=== PATIENT | male | born 1945 | race African-American/Black ===

== ENCOUNTER 2016-11-09 08:22 | Emergency (ER) | payer MEDICARE, OTHER ==
[~2016-11-09] VITALS: Ht 188 cm; Wt 62.6 kg
[~2016-11-09 08:22] MED LIST: CALCCAP7; CARB1TAB61; DORZ2SOL9; MECL25TA94; OME20GT; [UNRECOGNIZED DRUG - OTHER]; [UNRECOGNIZED DRUG - OTHER]
[2016-11-09 12:18] LABS: Basophils # (auto) 0.1 uL; Basophils % (auto) 1.5 % (0.0-2.0); Eosinophils # (auto) 0.1 uL; Eosinophils % (auto) 1.4 % (0.0-7.0); Hematocrit 38.9 % (41.0-53.0); Hemoglobin 12.9 g/dL (13.5-17.5); Lymphocytes # (auto) 1.3 uL; Lymphocytes % (auto) 26.7 % (10.0-50.0); Mean Corpuscular Hemoglobin 33.2 pg (28.0-32.0); Mean Corpuscular Hgb Conc. 33.3 g/dL (32.0-36.0); Mean Platelet Volume 7.7 fL (7.4-10.4); Monocytes # (auto) 0.5 uL; Monocytes % (auto) 10.9 % (0.0-12.0); Neutrophils # (auto) 2.8 uL; Neutrophils % (auto) 59.5 % (37.0-80.0); Platelet Count (auto) 385 10^3/uL (140-450); Red Cell Distribution Width 12.4 % (11.6-16.0); White Blood Cell 4.8 10^3/uL (4.4-10.8)
[2016-11-09 12:36] LABS: Albumin 3.9 g/dL (3.4-5.0); Anion Gap 9 (5-15); Aspartate Aminotransferase 13 U/L (15-37); BUN/Creatinine Ratio 15.7; Blood Urea Nitrogen 13 mg/dL (7-18); Calcium 8.7 mg/dL (8.5-10.1); Carbon Dioxide 27 mmol/L (21-32); Chloride 102 mmol/L (98-107); GFR African American 117 mL/min; GFR Non-African American 97 mL/min; Glucose 100 mg/dL (74-106); Potassium 4.1 mmol/L (3.5-5.1); Sodium 138 mmol/L (136-145)
[2016-11-09 12:37] LABS: INR 1.03 (0.9-1.15); Partial Thromboplastin Time 26.6 sec (22.64-33.71); Prothrombin Time 10.6 sec (9.37-12.3)
[2016-11-09 12:41] LABS: Alkaline Phosphatase 67 U/L (45-117); Bilirubin, Total 0.4 mg/dL (0.2-1.0); Total Protein 8.1 g/dL (6.4-8.2)
[2016-11-09 13:30] LABS: Urine Bilirubin Negative (Negative); Urine Color Yellow (Yellow); Urine Glucose Normal (Normal); Urine Ketone Negative (Negative); Urine Nitrite Negative (Negative); Urine RBC 7 /hpf (0 - 3); Urine Urobilinogen Normal (Negative); Urine pH 6.5 (5.0-8.0)
[2016-11-09 13:31] LABS: Urine Blood 1+ /uL (Negative)
[2016-11-09 15:18] VITALS: BP 150/79
== END 2016-11-09 16:14 | disposition home or self-care (01) ==
LOC: EDUNIT# 08:22 → ER 08:25
DX: R06.02 Shortness of breath (principal); G20 Parkinson's disease; R42 Dizziness and giddiness; R51 Headache; F41.9 Anxiety disorder, unspecified; I25.10 Atherosclerotic heart disease of native coronary artery without angina pectoris; I10 Essential (primary) hypertension; Z95.0 Presence of cardiac pacemaker
CPT/HCPCS: 36415; 71010; 80053; 81001; 84484; 85025; 85610; 85730; 93005

== ENCOUNTER → 2017-04-28 | Outpatient (CLI) | payer MEDICARE, OTHER ==
[~2017-04-28] MED LIST changes: +AMLO5TAB2 PO; +ASPI-231 PO; +BRIM0.1S3 OP; +CAR25T PO; -CARB1TAB61; +DORZ1SOL2 OP; -DORZ2SOL9; -MECL25TA94; +OME20T PO; +SIME80CH6 PO; +TRAV0.00 OP
== END | disposition home or self-care (01) ==
LOC: Rad HDHVI 09:45
PROVIDERS: ATTEND Internal Medicine Cardiovascular Disease
DX: I48.0 Paroxysmal atrial fibrillation (principal); I63.9 Cerebral infarction, unspecified
CPT/HCPCS: 93880

== ENCOUNTER → 2017-09-04 | Outpatient (CLI) | payer MEDICARE, OTHER ==
[~2017-09-04] MED LIST changes: +diphenhdrAMINE HCL 50 MG/1 ML VL IV ONE; +diphenhdrAMINE HCL 50 MG/1 ML VL ONE; +methylPREDNISolone SOD SUCC 125 MG/2 ML VL IV ONE; +methylPREDNISolone SOD SUCC 125 MG/2 ML VL ONE
[2017-09-04 11:00] VITALS: BP 171/97
[2017-09-04 11:40] VITALS: BP 192/105
== END | disposition home or self-care (01) ==
LOC: Rad HDHVI 10:36
PROVIDERS: ATTEND Internal Medicine Cardiovascular Disease
DX: I67.2 Cerebral atherosclerosis (principal)
CPT/HCPCS: 70498; 82565; 96374; 96375; G0463; J1200; J2930

== ENCOUNTER → 2018-07-16 | Outpatient (CLI) | payer MEDICARE, OTHER ==
[~2018-07-16] VITALS: Ht 30.5 cm; Wt 59.4 kg
[~2018-07-16] MED LIST changes: +AMLO5TAB13 PO; -AMLO5TAB2 PO; +IOHEXOL 350 MG/ML 100ML IJ ONE; +diphenhdrAMINE HCL 25 MG CAP PO ONE; -diphenhdrAMINE HCL 50 MG/1 ML VL IV ONE; -diphenhdrAMINE HCL 50 MG/1 ML VL ONE
[2018-07-16 09:30] VITALS: BP 92/58
[2018-07-16 11:25] VITALS: BP 148/87
== END | disposition home or self-care (01) ==
LOC: Rad HDHVI 09:27
PROVIDERS: ATTEND Internal Medicine Cardiovascular Disease
DX: I72.9 Aneurysm of unspecified site (principal); I10 Essential (primary) hypertension; E78.5 Hyperlipidemia, unspecified; E03.9 Hypothyroidism, unspecified; G20 Parkinson's disease; E11.9 Type 2 diabetes mellitus without complications
CPT/HCPCS: 70496; 82565; 96374; G0463; J2930; Q9967

== ENCOUNTER → 2018-10-15 | Outpatient (CLI) | payer MEDICARE, OTHER ==
[~2018-10-15] MED LIST changes: +READI-CAT 2 (BARIUM SULF)(VANILLA SMOOTHIE) 450ML ONE; -diphenhdrAMINE HCL 25 MG CAP PO ONE; +diphenhdrAMINE HCL 50 MG/1 ML VL IV ONE; +diphenhdrAMINE HCL 50 MG/1 ML VL ONE
[2018-10-15 08:40] VITALS: BP 92/50
--- NOTE | 2018-10-15 08:40 | NUR ---
CHF PT TO CHF CLINIC FOR IV INSERT FOR CT ABD PELVIS DUE TO CONTINUED ABD PAIN DX. PT RUTHY IODINE ALLERGY AND MUST BE PREMEDICATION PRIOR TO CT.
--- NOTE | 2018-10-15 08:57 | NUR ---
CHF IV insertion IV access obtained, via clean sterile technique by inserting 22 gauge catheter at after attempt(s). IV secured properly. No trauma to site. Patient tolerated procedure well.Clinic Provider Clinic Provider DR. LONG pt with new orders received and carried out. PREMEDICATE WITH BENADRYL 25MG IVP AND SOLUMEDEROL 125MG IVP FOR IODINE ALLERGY. per MD order.
[2018-10-15 09:25] VITALS: BP 132/71
--- NOTE | 2018-10-15 09:30 | NUR ---
CHF IV removal IV DC'd with sterile technique, catheter fully intact. Pressure dressing applied to site. Patient tolerated procedure well. INCREASE O/2 INTAKE TODAY TO AID IN CONTRAST CLEARANCE. Discharged with aftercare instructions per MD. NOTE:
== END | disposition home or self-care (01) ==
LOC: Rad HDHVI 08:27
PROVIDERS: ATTEND Internal Medicine Cardiovascular Disease
DX: N28.1 Cyst of kidney, acquired (principal); N40.0 Benign prostatic hyperplasia without lower urinary tract symptoms; I25.10 Atherosclerotic heart disease of native coronary artery without angina pectoris; I48.0 Paroxysmal atrial fibrillation; I10 Essential (primary) hypertension; E78.5 Hyperlipidemia, unspecified; E03.9 Hypothyroidism, unspecified; E11.9 Type 2 diabetes mellitus without complications; E78.00 Pure hypercholesterolemia, unspecified; F41.9 Anxiety disorder, unspecified; Z86.73 Personal history of transient ischemic attack (TIA), and cerebral infarction without residual deficits; Z86.018 Personal history of other benign neoplasm; Z95.0 Presence of cardiac pacemaker
CPT/HCPCS: 74177; 82565; 96374; 96375; G0463; J1200; J2930; Q9967

== ENCOUNTER → 2018-12-24 | Outpatient (CLI) | payer MEDICARE, OTHER ==
[~2018-12-24] MED LIST changes: -IOHEXOL 350 MG/ML 100ML IJ ONE; -READI-CAT 2 (BARIUM SULF)(VANILLA SMOOTHIE) 450ML ONE; -diphenhdrAMINE HCL 50 MG/1 ML VL IV ONE; -diphenhdrAMINE HCL 50 MG/1 ML VL ONE; -methylPREDNISolone SOD SUCC 125 MG/2 ML VL IV ONE; -methylPREDNISolone SOD SUCC 125 MG/2 ML VL ONE
[2018-12-24 12:18] LABS: Urine Blood TRACE /uL (Negative); Urine Specific Gravity 1.012 (1.001-1.035)
[2018-12-24 12:26] LABS: Basophils # (auto) 0 uL; Eosinophils # (auto) 0.1 uL; Hemoglobin 14.4 g/dL (13.5-17.5); Lymphocytes # (auto) 0.9 uL; Monocytes # (auto) 0.4 uL; White Blood Cell 3.4 10^3/uL (4.4-10.8)
[2018-12-24 12:29] LABS: Basophils % (auto) 0.6 % (0.0-2.0); Eosinophils % (auto) 1.9 % (0.0-7.0); Hematocrit 43.2 % (41.0-53.0); Lymphocytes % (auto) 26.4 % (10.0-50.0); Mean Corpuscular Hemoglobin 34.8 pg (28.0-32.0); Mean Corpuscular Hgb Conc. 33.3 g/dL (32.0-36.0); Mean Corpuscular Volume 104.5 fL (80.0-100.0); Monocytes % (auto) 12.5 % (0.0-12.0); Neutrophils % (auto) 58.6 % (37.0-80.0); Nucleated Red Blood Cells % 0.2 %; Platelet Count (auto) 340 10^3/uL (140-450); Red Blood Cells 4.13 10^6/uL (4.5-5.90); Red Cell Distribution Width 13.4 % (11.8-14.3)
[2018-12-24 13:00] LABS: Albumin 4.1 g/dL (3.4-5.0); Potassium 3.9 mmol/L (3.5-5.1)
[2018-12-24 13:09] LABS: BUN/Creatinine Ratio 14.6; Bilirubin, Total 0.5 mg/dL (0.2-1.0); Calcium 9.1 mg/dL (8.5-10.1); Total Protein 8.4 g/dL (6.4-8.2)
== END | disposition home or self-care (01) ==
LOC: Rad HDHVI 09:31
PROVIDERS: ATTEND Internal Medicine Cardiovascular Disease
DX: N39.0 Urinary tract infection, site not specified (principal); E78.5 Hyperlipidemia, unspecified; I10 Essential (primary) hypertension; D64.9 Anemia, unspecified; E03.9 Hypothyroidism, unspecified; M85.89 Other specified disorders of bone density and structure, multiple sites; J84.10 Pulmonary fibrosis, unspecified; I70.0 Atherosclerosis of aorta
CPT/HCPCS: 36415; 71046; 80053; 80061; 81003; 84439; 84443; 85025; 87086

== ENCOUNTER → 2020-05-16 | Outpatient (CLI) | payer MEDICARE, OTHER ==
[~2020-05-16] MED LIST changes: -AMLO5TAB13 PO; +AMLO5TAB15 PO
[2020-05-16 16:36] LABS: Basophils # (auto) 0 10 ^3/uL (0-0.2); Eosinophils # (auto) 0 10 ^3/uL (0-0.8); Lymphocytes # (auto) 0.6 10 ^3/uL (0.4-5.4); Monocytes # (auto) 0.3 10 ^3/uL (0-1.3); Nucleated Red Blood Cells % 0.1 %; White Blood Cell 2.6 10^3/uL (4.4-10.8)
[2020-05-16 16:38] LABS: Basophils % (auto) 1.2 % (0.0-2.0); Eosinophils % (auto) 0.6 % (0.0-7.0); Hematocrit 38.5 % (41.0-53.0); Lymphocytes % (auto) 23.1 % (10.0-50.0); Mean Corpuscular Hemoglobin 34.1 pg (28.0-32.0); Mean Corpuscular Hgb Conc. 33.7 g/dL (32.0-36.0); Mean Corpuscular Volume 101.3 fL (80.0-100.0); Monocytes % (auto) 10.1 % (0.0-12.0); Neutrophils # (auto) 1.7 10 ^3/uL (1.6-8.6); Platelet Count (auto) 356 10^3/uL (140-450); Red Blood Cells 3.81 10^6/uL (4.5-5.90); Red Cell Distribution Width 13.3 % (11.8-14.3)
[2020-05-16 16:42] LABS: Urine Blood Negative /uL (Negative); Urine Specific Gravity 1.025 (1.001-1.035)
[2020-05-16 16:48] LABS: Albumin 3.6 g/dL (3.4-5.0); Anion Gap 3 (5-15); Blood Urea Nitrogen 13 mg/dL (7-18); Calcium 8.5 mg/dL (8.5-10.1); Carbon Dioxide 30 mmol/L (21-32); Chloride 105 mmol/L (98-107); Glucose 77 mg/dL (74-106); Potassium 3.9 mmol/L (3.5-5.1); Sodium 138 mmol/L (136-145)
[2020-05-16 16:51] LABS: Alanine Aminotransferase 13 U/L (16-61); Alkaline Phosphatase 69 U/L (45-117); Aspartate Aminotransferase 15 U/L (15-37); BUN/Creatinine Ratio 16.5; Bilirubin, Direct < 0.1 mg/dL (0-0.2); Bilirubin, Total 0.3 mg/dL (0.2-1.0); Cholesterol 161 mg/dL (< 200); GFR African American 123 mL/min; GFR Non-African American 102 mL/min; HDL Cholesterol 84 mg/dL (40-59); LDL Cholesterol 73 mg/dL (< 100); Total Protein 7.3 g/dL (6.4-8.2); Triglycerides 30 mg/dL (< 150)
== END | disposition home or self-care (01) ==
LOC: Rad HDHVI 15:31
PROVIDERS: ATTEND Internal Medicine Cardiovascular Disease
DX: S43.001A Unspecified subluxation of right shoulder joint, initial encounter (principal); M47.812 Spondylosis without myelopathy or radiculopathy, cervical region; M25.78 Osteophyte, vertebrae; C61 Malignant neoplasm of prostate; M19.011 Primary osteoarthritis, right shoulder; M48.03 Spinal stenosis, cervicothoracic region; E11.9 Type 2 diabetes mellitus without complications; K90.9 Intestinal malabsorption, unspecified; E03.9 Hypothyroidism, unspecified; N39.0 Urinary tract infection, site not specified; D51.9 Vitamin B12 deficiency anemia, unspecified; D64.9 Anemia, unspecified; I10 Essential (primary) hypertension; E78.5 Hyperlipidemia, unspecified; E55.9 Vitamin D deficiency, unspecified; R53.81 Other malaise; R97.20 Elevated prostate specific antigen [PSA]; M81.0 Age-related osteoporosis without current pathological fracture; Z00.00 Encounter for general adult medical examination without abnormal findings; Z79.899 Other long term (current) drug therapy; X58.XXXA Exposure to other specified factors, initial encounter; Y93.89 Activity, other specified; Y92.89 Other specified places as the place of occurrence of the external cause; Y99.8 Other external cause status
CPT/HCPCS: 36415; 72040; 73030; 80048; 80061; 80076; 81003; 82306; 83036; 84153; 84403; 84443; 85025

== ENCOUNTER → 2020-05-17 | Outpatient (CLI) | payer MEDICARE, OTHER | END | disposition home or self-care (01) | LOC: Rad HDHVI 16:07 | PROVIDERS: ATTEND Internal Medicine Cardiovascular Disease | DX: I37.1 Nonrheumatic pulmonary valve insufficiency (principal); I07.1 Rheumatic tricuspid insufficiency; R07.89 Other chest pain; R00.1 Bradycardia, unspecified; Z95.0 Presence of cardiac pacemaker | CPT/HCPCS: 93306 ==

== ENCOUNTER → 2020-10-26 | Outpatient (CLI) | payer MEDICARE, OTHER ==
[~2020-10-26] MED LIST changes: +AMLO-489 PO; -AMLO5TAB15 PO
[2020-10-26 11:29] LABS: Urine Blood Negative /uL (Negative); Urine Specific Gravity 1.027 (1.001-1.035)
== END | disposition home or self-care (01) ==
LOC: Rad HDHVI 10:09
PROVIDERS: ATTEND Internal Medicine
DX: M16.0 Bilateral primary osteoarthritis of hip (principal); M54.5 Low back pain; M25.552 Pain in left hip; M25.551 Pain in right hip; N39.0 Urinary tract infection, site not specified
CPT/HCPCS: 72100; 81003

== ENCOUNTER 2021-03-11 18:35 | Inpatient (IN) | payer MEDICARE, OTHER ==
[~2021-03-11] VITALS: Ht 188 cm; Wt 59.7 kg
[~2021-03-11 18:35] MED LIST changes: -ASPI-231 PO; +ASPI1TAB20 PO
[2021-03-11] MEDS ORDERED: SODIUM CHLORIDE 0.9% 500 ML IVB ONE (19:00)
[2021-03-11 19:07] LABS: Basophils # (auto) 0 10 ^3/uL (0-0.2); Basophils % (auto) 0.9 % (0.0-2.0); Eosinophils # (auto) 0.1 10 ^3/uL (0-0.8); Eosinophils % (auto) 2.6 % (0.0-7.0); Monocytes # (auto) 0.4 10 ^3/uL (0-1.3); Monocytes % (auto) 9.5 % (0.0-12.0); Neutrophils # (auto) 2.1 10 ^3/uL (1.6-8.6); Red Cell Distribution Width 12.9 % (11.8-14.3)
[2021-03-11 19:09] LABS: Hematocrit 34.9 % (41.0-53.0); Hemoglobin 12.5 g/dL (13.5-17.5); Lymphocytes # (auto) 1.6 10 ^3/uL (0.4-5.4); Lymphocytes % (auto) 37.5 % (10.0-50.0); Mean Corpuscular Hemoglobin 35.5 pg (28.0-32.0); Mean Corpuscular Hgb Conc. 35.7 g/dL (32.0-36.0); Mean Corpuscular Volume 99.2 fL (80.0-100.0); Neutrophils % (auto) 49.5 % (37.0-80.0); Nucleated Red Blood Cells % 0.1 %; Red Blood Cells 3.52 10^6/uL (4.5-5.90); White Blood Cell 4.3 10^3/uL (4.4-10.8)
[2021-03-11 19:26] LABS: Alanine Aminotransferase 11 U/L (16-61); Albumin 3.5 g/dL (3.4-5.0); Anion Gap 5 (5-15); Blood Urea Nitrogen 19 mg/dL (7-18); Calcium 8.4 mg/dL (8.5-10.1); Carbon Dioxide 27 mmol/L (21-32); Chloride 108 mmol/L (98-107); Glucose 159 mg/dL (74-106); Magnesium 2.6 mg/dL (1.6-2.6); Potassium 4.1 mmol/L (3.5-5.1); Sodium 140 mmol/L (136-145)
[2021-03-11 19:32] LABS: Alkaline Phosphatase 69 U/L (45-117); Aspartate Aminotransferase 14 U/L (15-37); BUN/Creatinine Ratio 22.1; Bilirubin, Total 0.3 mg/dL (0.2-1.0); GFR African American 111 mL/min; GFR Non-African American 92 mL/min; Total Protein 7.4 g/dL (6.4-8.2)
[2021-03-11] MEDS ORDERED: NITROGLYCERIN 0.4 MG SL TAB SL PRN (22:00)
[2021-03-11] MEDS ORDERED: KETOROLAC TROMETH 30 MG/ML 1ML VIAL IV PRN (22:00)
[2021-03-11] MEDS ORDERED: MORPHINE SULFATE INJECTION 2 MG/ML SYRG IV PRN (22:00)
[2021-03-11] MEDS ORDERED: PIMA34CA PO (22:26)
[2021-03-11] MEDS ORDERED: AMLO-489 PO (22:26)
[2021-03-11] MEDS ORDERED: CARB25TA79 PO ×2 (22:26)
[2021-03-11] MEDS ORDERED: GABA100C9 PO (22:26)
[2021-03-11] MEDS ORDERED: QUET50TA PO (22:26)
[2021-03-11] MEDS ORDERED: CARB1TAB73 PO (22:26)
[2021-03-11] MEDS ORDERED: DONETAB6 PO (22:26)
[2021-03-11] MEDS ORDERED: DIVA250T4 PO (22:26)
[2021-03-12] MEDS ORDERED: cloNIDine HCL 0.1 MG TAB ONE (00:05)
[2021-03-12] MEDS: SODIUM CHLORIDE 0.9% 1,000 ML IV SCH ×2 (00:54→18:23)
[2021-03-12] MEDS ORDERED: cloNIDine HCL 0.1 MG TAB PO PRN ×2 (02:30)
[2021-03-12 03:54] LABS: Urine Bacteria FEW /hpf (None Seen); Urine Blood Negative /uL (Negative); Urine Mucus FEW (None Seen); Urine Specific Gravity 1.017 (1.001-1.035); Urine WBC 1 /hpf (0 - 3)
[2021-03-12] MEDS ORDERED: CARBIDOPA W LEVODOPA 25/100mg TABLET PO SCH ×2 (04:00→12:00)
[2021-03-12] MEDS: cefTRIAXone 1GM/50ML D5W 50 ML IV SCH (09:47)
[2021-03-12] MEDS: CARBIDOPA W LEVODOPA 25/250mg TABLET PO SCH ×2 (09:47→10:00)
[2021-03-12] MEDS: GABAPENTIN 100 MG CAP PO SCH ×2 (09:49→22:00)
[2021-03-12] MEDS: amLODIPine BESYLATE 5 MG TAB PO SCH (09:50)
[2021-03-12 11:45] VITALS: BP 137/76
[2021-03-12] MEDS: QUEtiapine FUMARATE 25 MG TAB PO SCH ×2 (12:14→22:00)
[2021-03-12] MEDS ORDERED: LATA0.0019 EACHEYE (13:34)
[2021-03-12] MEDS: CARBIDOPA W LEVODOPA 25/100mg TABLET PO SCH ×2 (16:00→22:33)
[2021-03-12 17:00] VITALS: BP 110/65
[2021-03-12 22:00] VITALS: BP 188/95
[2021-03-12] MEDS: DONEPEZIL HYDROCHLORIDE 5 MG TAB PO SCH (22:00)
[2021-03-13] MEDS ORDERED: HALOPERIDOL LACTATE 5 MG/ML INJ VIAL IM PRN (01:15)
[2021-03-13] MEDS: CARBIDOPA W LEVODOPA 25/100mg TABLET PO SCH ×5 (04:00→20:12)
[2021-03-13 05:00] VITALS: BP 137/91
[2021-03-13] MEDS: CARBIDOPA W LEVODOPA 25/250mg TABLET PO SCH (08:11)
[2021-03-13 10:10] VITALS: BP 124/69
[2021-03-13] MEDS: GABAPENTIN 100 MG CAP PO SCH ×2 (10:13→22:13)
[2021-03-13] MEDS: cefTRIAXone 1GM/50ML D5W 50 ML IV SCH (10:14)
[2021-03-13] MEDS: QUEtiapine FUMARATE 25 MG TAB PO SCH ×2 (10:14→22:13)
[2021-03-13] MEDS: amLODIPine BESYLATE 5 MG TAB PO SCH (10:21)
[2021-03-13] MEDS: SODIUM CHLORIDE 0.9% 1,000 ML IV SCH (16:15)
[2021-03-13 22:00] VITALS: BP 100/64
[2021-03-13] MEDS: DONEPEZIL HYDROCHLORIDE 5 MG TAB PO SCH (22:12)
[2021-03-13 22:56] LABS: Folate (Folic Acid) > 24.00 ng/mL (5.38-24)
[2021-03-14] MEDS: CARBIDOPA W LEVODOPA 25/100mg TABLET PO SCH ×6 (00:13→23:57)
[2021-03-14 05:00] VITALS: BP 105/62
[2021-03-14] MEDS: CARBIDOPA W LEVODOPA 25/250mg TABLET PO SCH (08:38)
[2021-03-14] MEDS: SODIUM CHLORIDE 0.9% 1,000 ML IV SCH (08:39)
[2021-03-14 09:00] VITALS: BP 147/80
[2021-03-14] MEDS: cefTRIAXone 1GM/50ML D5W 50 ML IV SCH (10:19)
[2021-03-14] MEDS: QUEtiapine FUMARATE 25 MG TAB PO SCH ×2 (10:20→21:56)
[2021-03-14] MEDS: ASPirin 81 mg TAB PO SCH (10:20)
[2021-03-14] MEDS: GABAPENTIN 100 MG CAP PO SCH ×2 (10:20→21:56)
[2021-03-14] MEDS: amLODIPine BESYLATE 5 MG TAB PO SCH (10:21)
[2021-03-14 13:00] VITALS: BP 102/60
[2021-03-14 17:00] VITALS: BP 72/48
[2021-03-14] MEDS: DONEPEZIL HYDROCHLORIDE 5 MG TAB PO SCH (21:56)
[2021-03-14 22:00] VITALS: BP 125/77
[2021-03-15] MEDS: SODIUM CHLORIDE 0.9% 1,000 ML IV SCH (04:29)
[2021-03-15] MEDS: CARBIDOPA W LEVODOPA 25/100mg TABLET PO SCH ×5 (04:29→23:55)
[2021-03-15 05:00] VITALS: BP 127/75
[2021-03-15] MEDS: CARBIDOPA W LEVODOPA 25/250mg TABLET PO SCH (07:34)
[2021-03-15 09:00] VITALS: BP 137/60
[2021-03-15] MEDS: GABAPENTIN 100 MG CAP PO SCH ×2 (09:56→21:35)
[2021-03-15] MEDS: cefTRIAXone 1GM/50ML D5W 50 ML IV SCH (09:56)
[2021-03-15] MEDS: ASPirin 81 mg TAB PO SCH (09:57)
[2021-03-15] MEDS: QUEtiapine FUMARATE 25 MG TAB PO SCH ×2 (09:57→21:35)
[2021-03-15] MEDS: amLODIPine BESYLATE 5 MG TAB PO SCH (09:59)
[2021-03-15 12:43] VITALS: BP 112/58
[2021-03-15 16:37] VITALS: BP 143/79
[2021-03-15] MEDS ORDERED: ACETAMINOPHEN 325 MG TAB PO PRN (17:15)
[2021-03-15] MEDS: DONEPEZIL HYDROCHLORIDE 5 MG TAB PO SCH (21:35)
[2021-03-15 22:00] VITALS: BP 151/83
[2021-03-16] MEDS: SODIUM CHLORIDE 0.9% 1,000 ML IV SCH (02:00)
[2021-03-16] MEDS: CARBIDOPA W LEVODOPA 25/100mg TABLET PO SCH ×3 (04:29→16:00)
[2021-03-16 05:00] VITALS: BP 185/92
[2021-03-16] MEDS: amLODIPine BESYLATE 5 MG TAB PO SCH (08:14)
[2021-03-16] MEDS: CARBIDOPA W LEVODOPA 25/250mg TABLET PO SCH (08:14)
[2021-03-16 08:30] VITALS: BP 166/84
[2021-03-16 09:35] VITALS: BP 140/82
[2021-03-16] MEDS: GABAPENTIN 100 MG CAP PO SCH (09:42)
[2021-03-16] MEDS: ASPirin 81 mg TAB PO SCH (09:42)
[2021-03-16] MEDS: cefTRIAXone 1GM/50ML D5W 50 ML IV SCH (09:42)
[2021-03-16] MEDS: QUEtiapine FUMARATE 25 MG TAB PO SCH (09:43)
[2021-03-16 12:28] VITALS: BP 98/54
[2021-03-16 14:46] VITALS: BP 166/74
[2021-03-16 16:39] VITALS: BP 92/62
== END 2021-03-16 16:30 | disposition home or self-care (01) | DRG 871 ==
LOC: EDBD 18:35 → ER 18:40 → TELE 21:54 → TELE-WESTW 03-12 12:19
PROVIDERS: ADMIT Internal Medicine Cardiovascular Disease; ATTEND Internal Medicine Cardiovascular Disease
DX: A41.9 Sepsis, unspecified organism (principal); G93.41 Metabolic encephalopathy; I10 Essential (primary) hypertension; G20 Parkinson's disease; I25.10 Atherosclerotic heart disease of native coronary artery without angina pectoris; F41.9 Anxiety disorder, unspecified; F02.80 Dementia in other diseases classified elsewhere, unspecified severity, without behavioral disturbance, psychotic disturbance, mood disturbance, and anxiety; Z20.822 Contact with and (suspected) exposure to COVID-19; R26.9 Unspecified abnormalities of gait and mobility; R73.9 Hyperglycemia, unspecified; G30.9 Alzheimer's disease, unspecified; E86.1 Hypovolemia; I49.5 Sick sinus syndrome; Z79.82 Long term (current) use of aspirin; Z79.899 Other long term (current) drug therapy; Z80.6 Family history of leukemia; Z82.0 Family history of epilepsy and other diseases of the nervous system; Z82.49 Family history of ischemic heart disease and other diseases of the circulatory system; Z83.3 Family history of diabetes mellitus; Z86.73 Personal history of transient ischemic attack (TIA), and cerebral infarction without residual deficits; Z95.0 Presence of cardiac pacemaker; Z91.041 Radiographic dye allergy status
CPT/HCPCS: 36415; 36600; 70450; 71045; 80053; 81001; 82607; 82746; 82805; 83735; 84484; 85025; 87426; 93005; 95819; 96365; A4565; G0378; J0696

== ENCOUNTER → 2021-04-11 | Outpatient (CLI) | payer MEDICARE, OTHER ==
[~2021-04-11] MED LIST changes: +ASPI-231 PO; -ASPI1TAB20 PO; -CAR25T PO; +CARB25TA22 PO; +CARB25TA23 PO; +DIVA250T4 PO; +DONETAB6 PO; +GABA100C9 PO; +LATA0.0019 EACHEYE; -OME20GT; -OME20T PO; +PIMA34CA PO; +QUET50TA PO; -SIME80CH6 PO; -TRAV0.00 OP; -[UNRECOGNIZED DRUG - OTHER]; -[UNRECOGNIZED DRUG - OTHER]
[2021-04-11 11:32] LABS: Basophils # (auto) 0 10 ^3/uL (0-0.2); Eosinophils # (auto) 0 10 ^3/uL (0-0.8); Neutrophils # (auto) 2.1 10 ^3/uL (1.6-8.6); Urine Blood Negative /uL (Negative); Urine Specific Gravity 1.013 (1.001-1.035); White Blood Cell 3.8 10^3/uL (4.4-10.8)
[2021-04-11 11:35] LABS: Basophils % (auto) 1.3 % (0.0-2.0); Eosinophils % (auto) 0.9 % (0.0-7.0); Hematocrit 37.3 % (41.0-53.0); Hemoglobin 12.9 g/dL (13.5-17.5); Lymphocytes # (auto) 1.3 10 ^3/uL (0.4-5.4); Lymphocytes % (auto) 33.7 % (10.0-50.0); Mean Corpuscular Hemoglobin 34.9 pg (28.0-32.0); Mean Corpuscular Hgb Conc. 34.5 g/dL (32.0-36.0); Mean Corpuscular Volume 101.2 fL (80.0-100.0); Monocytes # (auto) 0.3 10 ^3/uL (0-1.3); Monocytes % (auto) 9.3 % (0.0-12.0); Neutrophils % (auto) 54.8 % (37.0-80.0); Red Blood Cells 3.69 10^6/uL (4.5-5.90); Red Cell Distribution Width 13.2 % (11.8-14.3)
[2021-04-11 12:00] LABS: Albumin 3.9 g/dL (3.4-5.0)
[2021-04-11 12:02] LABS: Free T4 (Free Thyroxine) 1.17 ng/dL (0.89-1.76); Prostate Specific Antigen 1.27 ng/mL (0.0-4.0)
[2021-04-11 12:06] LABS: BUN/Creatinine Ratio 21.6; Bilirubin, Total 0.5 mg/dL (0.2-1.0); Total Protein 8.1 g/dL (6.4-8.2)
== END | disposition home or self-care (01) ==
LOC: Rad HDHVI 07:54
PROVIDERS: ATTEND Internal Medicine Cardiovascular Disease
DX: C61 Malignant neoplasm of prostate (principal); D51.3 Other dietary vitamin B12 deficiency anemia; I10 Essential (primary) hypertension; E11.9 Type 2 diabetes mellitus without complications; E55.9 Vitamin D deficiency, unspecified; D64.9 Anemia, unspecified; R00.2 Palpitations; R53.1 Weakness; R30.0 Dysuria; R07.89 Other chest pain; E78.5 Hyperlipidemia, unspecified
CPT/HCPCS: 36415; 80053; 80061; 81003; 82306; 82607; 83036; 84153; 84403; 84439; 84443; 85025; 93306

== ENCOUNTER → 2022-05-05 | Outpatient (CLI) | payer MEDICARE, OTHER ==
[~2022-05-05] MED LIST changes: -ASPI-231 PO; +ASPI1TAB20 PO; +CARB1TAB73 PO; -CARB25TA22 PO; -CARB25TA23 PO; +CARB25TA79 PO
[2022-05-05 10:20] LABS: Basophils # (auto) 0 10 ^3/uL (0-0.2); Basophils % (auto) 0.7 % (0.0-2.0); Eosinophils # (auto) 0.1 10 ^3/uL (0-0.8); Eosinophils % (auto) 3.5 % (0.0-7.0); Hematocrit 35.1 % (41.0-53.0); Lymphocytes # (auto) 0.7 10 ^3/uL (0.4-5.4); Lymphocytes % (auto) 35.6 % (10.0-50.0); Mean Corpuscular Hemoglobin 33.4 pg (28.0-32.0); Mean Corpuscular Hgb Conc. 34.2 g/dL (32.0-36.0); Mean Corpuscular Volume 97.4 fL (80.0-100.0); Monocytes # (auto) 0.2 10 ^3/uL (0-1.3); Monocytes % (auto) 9.7 % (0.0-12.0); Neutrophils % (auto) 50.5 % (37.0-80.0); Nucleated Red Blood Cells % 0.1 %; Red Cell Distribution Width 13.5 % (11.8-14.3); White Blood Cell 2.1 10^3/uL (4.4-10.8)
[2022-05-05 10:26] LABS: Potassium 3.9 mmol/L (3.5-5.1)
[2022-05-05 10:35] LABS: Albumin 3.4 g/dL (3.4-5.0); BUN/Creatinine Ratio 19.8; Bilirubin, Total 0.5 mg/dL (0.2-1.0); Calcium 8.7 mg/dL (8.5-10.1); Total Protein 7.3 g/dL (6.4-8.2)
[2022-05-05 10:38] LABS: Free T4 (Free Thyroxine) 1.06 ng/dL (0.89-1.76); Prostate Specific Antigen 1.4 ng/mL (0.0-4.0)
[2022-05-06 16:36] LABS: Urine Blood Negative /uL (Negative); Urine Specific Gravity 1.009 (1.001-1.035)
== END | disposition home or self-care (01) ==
LOC: LAB 09:08
PROVIDERS: ATTEND Internal Medicine Cardiovascular Disease
DX: D51.3 Other dietary vitamin B12 deficiency anemia (principal); D64.9 Anemia, unspecified; E55.9 Vitamin D deficiency, unspecified; E11.9 Type 2 diabetes mellitus without complications; I10 Essential (primary) hypertension; R00.2 Palpitations; R53.1 Weakness; R30.0 Dysuria; C61 Malignant neoplasm of prostate
CPT/HCPCS: 36415; 80053; 80061; 81003; 82306; 82607; 83036; 84153; 84403; 84439; 84443; 85025

== ENCOUNTER → 2022-05-07 | Outpatient (CLI) | payer MEDICARE, OTHER | END | disposition home or self-care (01) | LOC: Rad HDHVI 08:21 | PROVIDERS: ATTEND Internal Medicine Cardiovascular Disease | DX: I08.1 Rheumatic disorders of both mitral and tricuspid valves (principal); I27.20 Pulmonary hypertension, unspecified; R00.2 Palpitations; I10 Essential (primary) hypertension | CPT/HCPCS: 93306 ==

== ENCOUNTER → 2022-09-01 | Outpatient (CLI) | payer MEDICARE, OTHER | END | disposition home or self-care (01) | LOC: Rad HDHVI 10:17 | PROVIDERS: ATTEND Internal Medicine Cardiovascular Disease | DX: M25.775 Osteophyte, left foot (principal); M25.774 Osteophyte, right foot; M77.8 Other enthesopathies, not elsewhere classified | CPT/HCPCS: 73630; 94640 ==

== ENCOUNTER → 2023-08-28 | Outpatient (CLI) | payer MEDICARE, OTHER ==
[~2023-08-28] MED LIST changes: -AMLO-489 PO; +AMLO1TAB22 PO; +GABA-1308 PO; -GABA100C9 PO; -LATA0.0019 EACHEYE; +LATA0.008 EACHEYE
== END | disposition home or self-care (01) ==
LOC: Rad HDHVI 15:55
PROVIDERS: ATTEND Internal Medicine Cardiovascular Disease
DX: I34.0 Nonrheumatic mitral (valve) insufficiency (principal); R07.89 Other chest pain; R00.2 Palpitations
CPT/HCPCS: 93306

== ENCOUNTER 2025-01-20 19:44 | Inpatient (IN) | payer MEDICARE, OTHER ==
[~2025-01-20] VITALS: Ht 188 cm; Wt 52.0 kg
[~2025-01-20 19:44] MED LIST changes: +DIVA-139 PO; -DIVA250T4 PO
--- NOTE | 2025-01-20 20:03 | ED.PDOC ---
History of Present Illness HPI Comments 79 year old male came to ER via EMS due to ALOC. Patient picked up at home and has history of Advanced Parkinson and implantable neurostimulator. Was noted by family members that for the past 3 days, patient has been having slurring of speech with facial droop. Patient is bed bound. No family members at bedside to provide more information. Chief Complaint: ALOC Time Seen by MD: 20:03 Reviewed Notes: Credit Risk Officer Notes Allergies: Coded Allergies: Iodine (Verified Allergy, Mild, HIVES, 02/01/10) Fluoxetine (Verified Allergy, Unknown, 01/22/25) Home Meds Reported Medications Carbidopa-Levodopa (Carbidopa/Levodopa Odt 25-100 mg) 1 Tab Tab, 1.5 TAB PO TID, TAB 01/22/25 Quetiapine Fumerate (Seroquel) 50 Mg Tab, 25 MG PO DAILY, TAB 01/22/25 Quetiapine Fumerate (Seroquel) 50 Mg Tab, 1 TAB PO QPM, #30 TAB 01/22/25 Midodrine Hcl (Midodrine Hcl) 10 Mg Tab, 15 MG PO PRN for prn, TAB 01/22/25 Pimavanserin Tartrate (Nuplazid) 34 Mg Cap, 34 MG PO DAILY, CAP 01/22/25 Carvedilol (Carvedilol) 3.125 Mg Tab, 1 TAB PO BID, #60 TAB 3 Refills 01/22/25 Carvedilol (Carvedilol) 3.125 Mg Tab, 3.125 MG PO BID for 30 Days, MG 01/21/25 Latanoprost (LATANOPROST) 0.005 % Matilde, 1 DROP EACHEYE QPM, #7.5 ML 3 Refills 03/12/21 Amlodipine Besylate (Amlodipine Besylate) 5 Mg Tab, 1 TAB PO, #30 TAB 5 Refills 03/11/21 Gabapentin (Gabapentin) 100 Mg Cap, 2 CAP PO HS, #90 CAP 2 Refills 03/11/21 Divalproex Sodium (Depakote) 250 Mg Tab, 0.5 TAB PO BID, #60 TAB 2 Refills 03/11/21 Pimavanserin Tartrate (Nuplazid) 34 Mg Cap, 34 MG PO DAILY, CAP 03/11/21 Carbidopa-Levodopa (Carbidopa/Levodopa Odt 25-100 mg) 1 Tab Tab, 1 TAB PO HS, TA B 03/11/21 Carbidopa-Levodopa (Carbidopa/Levodopa Odt 25-100 mg) 1 Tab Tab, 1.5 TAB PO Q4HR, TAB 03/11/21 Carbidopa-Levodopa (Carbidopa/Levodopa Odt 25-250 mg) 1 Tab Tab, 1 TAB PO DAILY, TAB 03/11/21 Donepezil Hydrochloride (DONEPEZIL HCL) 10 Mg Tab, 10 MG PO HS, TAB 03/11/21 Aspirin (Aspir-81) 81 Mg Tab, 81 MG PO DAILY, TAB 02/17/17 Dorzolamide Hcl-Timolol Maleat (COSOPT PF) Matilde, 1 OP BID 02/17/17 Brimonidine Tartrate (Alphagan P) 0.1 % Matilde, 0.1 % OP BID 02/17/17 Calcium (Calcium Kiki-Max) 1 Cap Cap 02/01/10 Discontinued Reported Medications Quetiapine Fumerate (Seroquel) 50 Mg Tab, 0.5 TAB PO BID, #30 TAB 2 Refills 03/11/21 Information Source: Emergency Med Personnel Mode of Arrival: EMS Severity: Moderate Timing: Days Duration: Since onset Past Medical History PAST MEDICAL HISTORY: Anxiety, CAD, Dementia, HTN, TIA Past Medical History (Other): Parkinsons disease Surgical History: Pacemaker Surgical History (Other): Neurostimulator Family History Family History: Reviewed,noncontributory to illness, Family hx of HTN Social History Smoker: Non-Smoker Alcohol: Rarely Drugs: Denies Drug Use Lives In: Home Unable to Obtain due to: Altered Mental Status, Other (Parkinsons disease) Physical Exam General Appearance: No Apparent Distress, Normal HEENT: Normal ENT Inspection, Pharynx Normal, TMs Normal Neck: Full Range of Motion, Non-Tender, Normal, Normal Inspection Respiratory: Chest Non-Tender, Lungs Clear, No Accessory Muscle Use, No Respiratory Distress, Normal Breath Sounds Cardiovascular: No Edema, No JVD, No Murmur, No Gallop, Normal Peripheral Pulses, Regular Rate/Rhythm Breast Exam: Deferred Gastrointestinal: No Organomegaly, Non Tender, No Pulsatile Mass, Normal Bowel Sounds, Soft Genitalia: Deferred Pelvic: Deferred Rectal: Deferred Extremities: No calf tenderness, Normal capillary refill, Normal inspection, Normal range of motion, Non-tender, No pedal edema Musculoskeletal : Apperance: Normal 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 Was a procedure done?: No Differential Dx Considerations may include: Anemia, electrolyte imbalance, sepsis, CVA, Parkinson disease X-Ray, Labs, Meds, VS Vital Signs Date Time Temp Pulse Resp B/P (MAP) Pulse Ox O2 Delivery O2 Flow Rate FiO2 01/20/25 23:08 85 171/110 01/20/25 22:41 89 13 97 Room Air* 0 21 01/20/25 22:36 93 163/108 (126) 01/20/25 22:21 100 16 193/114 (140) 100 01/20/25 19:50 75 01/20/25 19:44 97.5 120 16 205/138 (160) 98 97.5 Lab Test 01/20/25 21:50 01/20/25 21:00 01/20/25 19:57 Range/Units Lactic Acid Level 1.0 6.2 *H 0.4-2.0 mmol/L Troponin I High Sensitivity 4 4 </=54 ng/L White Blood Count 5.0 4.4-10.8 10^3/uL Red Blood Count 3.88 L 4.5-5.90 10^6/uL Hemoglobin 13.0 L 13.5-17.5 g/dL Hematocrit 37.3 L 41.0-53.0 % Mean Corpuscular Volume 96.2 80.0-100.0 fL Mean Corpuscular Hemoglobin 33.4 H 28.0-32.0 pg Mean Corpuscular Hemoglobin Concent 34.7 32.0-36.0 g/dL Red Cell Distribution Width 13.7 11.8-14.3 % Platelet Count 368 140-450 10^3/uL Mean Platelet Volume 7.8 6.9-10.8 fL Neutrophils (%) (Auto) 76.6 37.0-80.0 % Lymphocytes (%) (Auto) 14.1 10.0-50.0 % Monocytes (%) (Auto) 7.7 0.0-12.0 % Eosinophils (%) (Auto) 1.0 0.0-7.0 % Basophils (%) (Auto) 0.6 0.0-2.0 % Neutrophils # (Auto) 3.9 1.6-8.6 10 ^3/uL Lymphocytes # (Auto) 0.7 0.4-5.4 10 ^3/uL Monocytes # (Auto) 0.4 0-1.3 10 ^3/uL Eosinophils # (Auto) 0.1 0-0.8 10 ^3/uL Basophils # (Auto) 0 0-0.2 10 ^3/uL Nucleated Red Blood Cells 0.1 % Sodium Level 140 136-145 mmol/L Potassium Level 4.0 3.5-5.1 mmol/L Chloride Level 102 98-107 mmol/L Carbon Dioxide Level 30 20-31 mmol/L Anion Gap 8 5-15 Blood Urea Nitrogen 15 9-23 mg/dL Creatinine 0.90 0.700-1.30 mg/dL Glomerular Filtration Rate Calc 87 >90 mL/min BUN/Creatinine Ratio 16.7 10.0-20.0 Serum Glucose 111 H 74-106 mg/dL Calcium Level 10.2 8.7-10.4 mg/dL B-Type Natriuretic Peptide 22.62 0-100 pg/mL Microbiology Date/Time Source Procedure Growth Status 01/20/25 21:50 Blood Blood Culture - Preliminary NO GROWTH AFTER 48 HOURS OF INCUBATION. Resulted 01/20/25 21:47 Blood Blood Culture - Preliminary NO GROWTH AFTER 48 HOURS OF INCUBATION. Resulted EXAM: CT HEAD WITHOUT CONTRAST INDICATION: weakness TECHNIQUE: CT of the head without intravenous contrast. Radiation Dose Information: CT Dose: CTDI volume is 64.28 mGy. Dose-length product is 1264.83 mGy*cm The dose indicators for CT are the volume Computed Tomography (CT) Dose Index (CTDIvol) and the Dose Length Product (DLP), and are measured in units of mGy an d mGy-cm, respectively. These indicators are not patient dose, but values generated from the CT scanner acquisition factors. The report includes radiation exposure data for exposures received during this examination. COMPARISON: HEAD WITHOUT CONTRAST on DOS: 03/11/21 FINDINGS: There is no evidence of acute intracranial hemorrhage, extra-axial collection, mass effect, midline shift, herniation or hydrocephalus. Neuro stimulating devices are noted in place bilaterally. The ventricles, sulci and cisterns are age appropriate. The caruso-white differentiation is intact. Patchy periventricular and subcortical white matter hypoattenuation is nonspecific but may be related to small vessel ischemic disease. The visualized paranasal sinuses and mastoid air cells are clear. The surrounding soft tissues and osseous structures are unremarkable. IMPRESSION: 1. There is no acute intracranial hemorrhage 2. No CT findings of territorial ischemia. CHEST RADIOGRAPH Indication: weakness Technique: Single frontal view of the chest was obtained Comparison: CHEST PORTABLE on DOS: 03/11/21 FINDINGS: Lines and Tubes: Stimulating device over the right upper lung field fires coursing cephalad. Dual-chamber pacemaker in place with pulse generator over the chest. Patient's left hand is superimposed over the left lower lung field. Lungs: No focal consolidation. Pleura: No effusion. No pneumothorax. Cardiomediastinal contours: Unremarkable Bones: No acute osseous abnormality. IMPRESSION: 1. Elevation of both diaphragms. 2. Probable bowel gas superimposed under the diaphragms bilaterally if pneumoperitoneum is of clinical concern recommend CT abdomen and pelvis. Time of 1ST Reevaluation: 19:56 Reevaluation 1ST: Unchanged Patient Education/Counseling: Other (Patient has Parkinson's disease) Family Education/Counseling: No Family Present Departure 1 Departure Time of Disposition: 17:54 (Patient presents with worsening mental status. Patient's CT is benign. Patient will be admitted for further workup and expert consultation.) Impression: Primary Impression: Metabolic encephalopathy Additional Impressions: Generalized weakness Parkinsons disease Qualified Codes: G20.B2 - Parkinson's disease with dyskinesia, with fluctua tions Intractable abdominal pain Disposition: ADMITTED INPATIENT Admit to: Med Surg Condition: Serious Critical Care Note Critical Care Time?: No Stability Stability form required: No Heart Score Heart Score: Heart Score Response (Comments) Value History N/A 0 EKG N/A 0 Age N/A 0 Risk Factors N/A 0 Troponin N/A 0 Total 0 I personally scribed for KIARA HERNDON MD ([email or web address]) on 01/20/25 at 20:03. Electronically submitted by Stu Maldonado ([facility]). I personally scribed for KIARA HERNDON MD ([facility]) on 01/20/25 at 22:18. Electronically submitted by Stu Maldonado ([email or web address]). KIARA HERNDON MD January 20, 2025 20:03
[2025-01-20 20:18] LABS: Basophils # (auto) 0 10 ^3/uL (0-0.2); Basophils % (auto) 0.6 % (0.0-2.0); Eosinophils # (auto) 0.1 10 ^3/uL (0-0.8); Hematocrit 37.3 % (41.0-53.0); Lymphocytes # (auto) 0.7 10 ^3/uL (0.4-5.4); Lymphocytes % (auto) 14.1 % (10.0-50.0); Mean Corpuscular Hemoglobin 33.4 pg (28.0-32.0); Mean Corpuscular Hgb Conc. 34.7 g/dL (32.0-36.0); Mean Corpuscular Volume 96.2 fL (80.0-100.0); Monocytes # (auto) 0.4 10 ^3/uL (0-1.3); Monocytes % (auto) 7.7 % (0.0-12.0); Neutrophils # (auto) 3.9 10 ^3/uL (1.6-8.6); Neutrophils % (auto) 76.6 % (37.0-80.0); Nucleated Red Blood Cells % 0.1 %; Platelet Count (auto) 368 10^3/uL (140-450); Red Blood Cells 3.88 10^6/uL (4.5-5.90); Red Cell Distribution Width 13.7 % (11.8-14.3)
[2025-01-20 20:22] LABS: Chloride 102 mmol/L (98-107); Sodium 140 mmol/L (136-145)
[2025-01-20 20:23] LABS: Anion Gap 8 (5-15); Calcium 10.2 mg/dL (8.7-10.4); Carbon Dioxide 30 mmol/L (20-31)
[2025-01-20 20:28] LABS: BUN/Creatinine Ratio 16.7 (10.0-20.0); Blood Urea Nitrogen 15 mg/dL (9-23)
[2025-01-20 20:38] LABS: Glucose 111 mg/dL (74-106)
[2025-01-20 20:42] LABS: Lactic Acid w/Reflex 6.2 mmol/L (0.4-2.0)
--- NOTE | 2025-01-20 21:05 | DVH ---
CHEST RADIOGRAPH Indication: weakness Technique: Single frontal view of the chest was obtained Comparison: CHEST PORTABLE on DOS: 03/11/21 FINDINGS: Lines and Tubes: Stimulating device over the right upper lung field fires coursing cephalad. Dual-natalia mber pacemaker in place with pulse generator over the chest. Patient's left hand is superimposed over the left lower lung field. Lungs: No focal consolidation. Pleura: No effusion. No pneumothorax. Cardiomediastinal contours: Unremarkable Bones: No acute osseous abnormality. IMPRESSION: 1. Elevation of both diaphragms. 2. Probable bowel gas superimposed under the diaphragms bilaterally if pneumoperitoneum is of clinica l concern recommend CT abdomen and pelvis.
--- NOTE | 2025-01-20 21:23 | DVH ---
EXAM: CT HEAD WITHOUT CONTRAST INDICATION: weakness TECHNIQUE: CT of the head without intravenous contrast. Radiation Dose Information: CT Dose: CTDI volume is 64.28 mGy. Dose-length product is 1264.83 mGy*cm The dose indicators for CT are the volume Computed Tomography (CT) Dose Index (CTDIvol) and the Dose Length Product (DLP), and are measured in units of mGy and mGy-cm, respectively. These indicators are not patient dose, but values generated from the CT scanner acquisition factors. The report includes radiation exposure data for exposures received during this examination. COMPARISON: HEAD WITHOUT CONTRAST on DOS: 03/11/21 FINDINGS: There is no evidence of acute intracranial hemorrhage, extra-axial collection, mass effect, midline s hift, herniation or hydrocephalus. Neuro stimulating devices are noted in place bilaterally. The ventricles, sulci and cisterns are age appropriate. The caruso-white differentiation is intact. Patchy periventricular and subcortical white matter hypoattenuation is nonspecific but may be related to small vessel ischemic disease. The visualized paranasal sinuses and mastoid air cells are clear. The surrounding soft tissues and osseous structures are unremarkable. IMPRESSION: 1. There is no acute intracranial hemorrhage 2. No CT findings of territorial ischemia.
[2025-01-20] MEDS ORDERED: CEFEPIME 2GM/50ML NS 50 ML IV ONE (21:30)
[2025-01-20 22:41] VITALS: PULSE 89; RESP 13; O2SAT 97
[2025-01-20] MEDS: SODIUM CHLORIDE 0.9% 1,000 ML IV ONE (23:00)
[2025-01-20] MEDS: ONDANSETRON HCL 4 MG/2 ML VIAL IV ONE (23:05)
[2025-01-20] MEDS: CEFEPIME 2GM/50ML NS 50 ML IV ONE (23:05)
[2025-01-20] MEDS: LABETALOL HCL 20 MG/4 ML VL IV ONE (23:08)
--- NOTE | 2025-01-20 23:48 | DVHHPRES ---
History of Present Illness Resident Creating Document: GERI SMALLWOOD RESIDENT History of Present Illness Patient is a 79-year-old male with past medical history of advanced Parkinson's disease, dysarthria, hypertension, CAD s/p pacemaker, TIA, anxiety, vascular disease, dementia, who was brought in due to increasing agitation. Patient is minimally verbal at baseline, per patient's at bedside patient has been increasingly agitated for the last 1 week. According to the , patient usually has hallucinations and difficulty speaking, however, over the last 1 week he has been having increasing hallucinations and is difficulty speaking as progressively worsened as has his mentation. Per patient has been bed- bound for the last 2 years due to his advanced Parkinson's disease. At the time of my assessment patient is AOx0, alert but nonresponsive. In the ER, CXR showed elevation of both diaphragms, probable bowel gas superimposed under the diaphragms bilaterally if pneumoperitoneum is of clinical concern recommend CT abdomen pelvis. On physical exam patient was noted to have a distended but soft abdomen. Patient was also noted to have a lactic acid 6.2, 1. CT abdomen pelvis was ordered for the patient, patient will be admitted for further management. Past Medical History advanced Parkinson's disease, dysarthria, hypertension, CAD s/p pacemaker, TIA, anxiety, vascular disease, dementia Past Surgical History Hernia repair surgery, pacemaker implantation, neurostimulator implantation Past Social History Smoking: Quit prior to that 2 packs per day for 25 years Alcohol: Remote history of heavy alcohol use Drugs: Denies Allergy: Iodine and Prozac Review of Systems Review of Systems Unable to complete review of systems as patient nonresponsive. Per patient's at bedside he has been complaining of abdominal pain. Allergies: Coded Allergies: Iodine (Verified Allergy, Mild, HIVES, 02/01/10) Fluoxetine (Verified Allergy, Unknown, 01/22/25) Exam Vital Signs Vital Signs Date Time Temp Pulse Resp B/P (MAP) Pulse Ox O2 Delivery O2 Flow Rate FiO2 01/20/25 23:08 85 171/110 01/20/25 22:41 13 97 Room Air* 0 21 01/20/25 19:44 97.5 97.5 General Appearance: Other (A/O times 0. Alert but nonresponsive.) HEENT: Atraumatic, PERRLA, EOMI Respiratory: Clear to auscultation, Normal air movement Cardiovascular: Regular rate, Normal S1, Normal S2 Abdominal: Normal bowel sounds, Other (Distended abdomen) Extremities: No edema Labs/Xrays Labs Test 01/20/25 21:50 01/20/25 21:00 01/20/25 19:57 Range/Units Lactic Acid Level 1.0 0.4-2.0 mmol/L Troponin I High Sensitivity 4 </=54 ng/L White Blood Count 5.0 4.4-10.8 10^3/uL Red Blood Count 3.88 L 4.5-5.90 10^6/uL Hemoglobin 13.0 L 13.5-17.5 g/dL Hematocrit 37.3 L 41.0-53.0 % Mean Corpuscular Volume 96.2 80.0-100.0 fL Mean Corpuscular Hemoglobin 33.4 H 28.0-32.0 pg Mean Corpuscular Hemoglobin Concent 34.7 32.0-36.0 g/dL Red Cell Distribution Width 13.7 11.8-14.3 % Platelet Count 368 140-450 10^3/uL Mean Platelet Volume 7.8 6.9-10.8 fL Neutrophils (%) (Auto) 76.6 37.0-80.0 % Lymphocytes (%) (Auto) 14.1 10.0-50.0 % Monocytes (%) (Auto) 7.7 0.0-12.0 % Eosinophils (%) (Auto) 1.0 0.0-7.0 % Basophils (%) (Auto) 0.6 0.0-2.0 % Neutrophils # (Auto) 3.9 1.6-8.6 10 ^3/uL Lymphocytes # (Auto) 0.7 0.4-5.4 10 ^3/uL Monocytes # (Auto) 0.4 0-1.3 10 ^3/uL Eosinophils # (Auto) 0.1 0-0.8 10 ^3/uL Basophils # (Auto) 0 0-0.2 10 ^3/uL Nucleated Red Blood Cells 0.1 % Sodium Level 140 136-145 mmol/L Potassium Level 4.0 3.5-5.1 mmol/L Chloride Level 102 98-107 mmol/L Carbon Dioxide Level 30 20-31 mmol/L Anion Gap 8 5-15 Blood Urea Nitrogen 15 9-23 mg/dL Creatinine 0.90 0.700-1.30 mg/dL Glomerular Filtration Rate Calc 87 >90 mL/min BUN/Creatinine Ratio 16.7 10.0-20.0 Serum Glucose 111 H 74-106 mg/dL Calcium Level 10.2 8.7-10.4 mg/dL B-Type Natriuretic Peptide 22.62 0-100 pg/mL Assessment/Plan Assessment/Plan Acute intractable abdominal pain Acute on chronic toxic versus metabolic encephalopathy Lactic acidosis - CXR: Elevation of both diaphragms. Probable bowel gas superimposed under the diaphragms bilaterally if pneumoperitoneum is of clinical concern recommend CT abdomen and pelvis. - head CT: No acute intracranial hemorrhage. No CT findings of territorial ischemia - ordered CT abdomen pelvis - ordered UA - IV NS 1 L x2 - IV vancomycin, IV Zosyn History of advanced Parkinson's disease History of anxiety History of dementia - resumed home medication carbidopa levodopa, Pimavanserin - resumed home medication quetiapine - resumed home medication divalproex - resumed home medication gabapentin History of glaucoma - latanoprost Coronary artery disease Hypertension History of TIA - resumed home medication aspirin, carvedilol, amlodipine DVT prophylaxis: Levonox 40mg Goals of care: Full code, discussed with patient's at bedside for >16 minutes on 01/20/25 Plan discussed with patient Plan discussed with Dr. Marquez Plan discussed with: Patient, Spouse, Other (RN) Date of Service: January 20, 2025 Billing Provider: MATTHEW MARQUEZ MD Common Visit Codes: 11271-[id number] INP/OBS CARE (HIGH) Secondary Visit Codes: 30073-[id number] CARE PLAN 30 MINUTES GERI SMALLWOOD RESIDENT January 20, 2025 23:48 MATTHEW MARQUEZ MD January 23, 2025 19:42
[2025-01-21] MEDS: SODIUM CHLORIDE 0.9% 1,000 ML IV ONE (00:06)
[2025-01-21] MEDS: VANCOMYCIN 1GM/200ML PM 200 ML IV ONE (00:14)
[2025-01-21] MEDS ORDERED: CARV3.1240 PO (01:17)
--- NOTE | 2025-01-21 03:33 | DVH ---
Exam: CT CT AB PEL WO CON-NO ORAL OR IV History: Sepsis, rule out perforation Comparison Study: [facility] on DOS: 05/07/22 Technique: Multidetector spiral CT of the abdomen was performed from lung bases to pubic symphysis. I maging was performed without IV contrast. Axial, coronal and sagittal multiplanar reformats were obta ined from the axial data set by the technologist. Radiation Dose : 1. Abdomen/Pelvis: CTDIvol 6.14 mGy, DLP 389.74 mGy*cm. Findings: Evaluation of solid organs is limited due to lack of intravenous contrast use. Lung Bases: No acute or significant lung base finding. Moderate posterior bibasilar subsegmental atel ectasis. Normal heart size. No pleural or pericardial effusion. Cardiac pacing leads. Liver: The liver is normal in size. No focal lesions. Gallbladder and Biliary Tree: Unremarkable Spleen: Unremarkable Pancreas: The pancreas is grossly normal in appearance. Adrenal Glands: Unremarkable Kidneys: Kidneys are grossly normal without calculi or hydronephrosis. Multiple right renal cysts micah sure up to 2.9 x 1.6 cm. Bladder: Grossly unremarkable for degree of distention. Bowel: The stomach is grossly normal in appearance. Markedly dilated stool impacted colon, most notab ly within the rectum, where the maximum diameter is 9.6 cm. The appendix is not visualized; however, no secondary findings of acute appendicitis identified. Ascites: Absent Lymphadenopathy: No mesenteric, retroperitoneal or periportal lymphadenopathy. Abdominal Wall and Mesentery: Unremarkable. Vasculature: The visualized abdominal aorta is normal in size and caliber. Atherosclerotic vascular c alcifications. Evaluation of abdominal and pelvic vessels is limited due to lack of intravenous cont rast. Pelvic Organs: Unremarkable Musculoskeletal: No aggressive focal bony lesions, acute fractures or dislocation. IMPRESSION: 1. Dilated stool impacted rectum measuring up to 9.6 cm. Radiation optimization: All CT scans at this facility use at least one of these dose optimization alethea hniques: automated exposure control mA and/or kV adjustment per patient size (includes targeted exam s where dose is matched to clinical indication) or iterative reconstruction.
[2025-01-21 04:10] LABS: Basophils # (auto) 0 10 ^3/uL (0-0.2); Basophils % (auto) 0.7 % (0.0-2.0); Eosinophils # (auto) 0 10 ^3/uL (0-0.8); Eosinophils % (auto) 0.4 % (0.0-7.0); Hematocrit 36.9 % (41.0-53.0); Hemoglobin 12.8 g/dL (13.5-17.5); Lymphocytes # (auto) 0.6 10 ^3/uL (0.4-5.4); Lymphocytes % (auto) 10.5 % (10.0-50.0); Mean Corpuscular Hemoglobin 33.5 pg (28.0-32.0); Mean Corpuscular Hgb Conc. 34.6 g/dL (32.0-36.0); Mean Corpuscular Volume 96.9 fL (80.0-100.0); Monocytes # (auto) 0.4 10 ^3/uL (0-1.3); Monocytes % (auto) 7.3 % (0.0-12.0); Neutrophils # (auto) 4.7 10 ^3/uL (1.6-8.6); Neutrophils % (auto) 81.1 % (37.0-80.0); Nucleated Red Blood Cells % 0.1 %; Platelet Count (auto) 338 10^3/uL (140-450); Red Blood Cells 3.81 10^6/uL (4.5-5.90); Red Cell Distribution Width 13.7 % (11.8-14.3); White Blood Cell 5.8 10^3/uL (4.4-10.8)
[2025-01-21 04:32] LABS: Albumin 4.5 g/dL (3.2-4.8); Alkaline Phosphatase 81 U/L (46-116); Anion Gap 10 (5-15); Aspartate Aminotransferase 16 U/L (13-40); BUN/Creatinine Ratio 14.9 (10.0-20.0); Bilirubin, Total 0.7 mg/dL (0.2-1.0); Blood Urea Nitrogen 13 mg/dL (9-23); Calcium 9.7 mg/dL (8.7-10.4); Carbon Dioxide 25 mmol/L (20-31); Chloride 105 mmol/L (98-107); Potassium 4.4 mmol/L (3.5-5.1); Sodium 140 mmol/L (136-145)
[2025-01-21 04:34] LABS: Alanine Aminotransferase < 9 U/L (7-40); Glucose 113 mg/dL (74-106)
[2025-01-21] MEDS: PIPERACILLIN-TAZOB 3.375GM 100 ML IV SCH (05:26)
[2025-01-21] MEDS: amLODIPine BESYLATE 5 MG TAB PO SCH (05:26)
[2025-01-21] MEDS: CARVEDILOL 3.125 MG TAB PO SCH (06:55)
[2025-01-21] MEDS ORDERED: VANCOMYCIN PER PHARMACY 0 MG IV SCH (07:00)
--- NOTE | 2025-01-21 07:12 | ECG ---
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
[2025-01-21 07:55] VITALS: PULSE 109; RESP 22; O2SAT 99
[2025-01-21 08:54] LABS: COVID19 ANTIGEN SOFIA FIA NEGATIVE (NEGATIVE); Rapid Influenza A Negative (Negative); Rapid Influenza B Negative (Negative)
[2025-01-21] MEDS ORDERED: CARVEDILOL 3.125 MG TAB PO SCH (10:00)
[2025-01-21] MEDS: QUEtiapine FUMARATE 25 MG TAB PO SCH (10:16)
[2025-01-21] MEDS: ENOXAPARIN SOD 40 MG/0.4 ML SYRINGE SC SCH (10:16)
[2025-01-21] MEDS: ASPirin-EC 81 mg tab PO SCH (10:16)
[2025-01-21] MEDS: VANCOMYCIN 500mg/100mL 100 ML IV ONE (11:27)
[2025-01-21] MEDS: CARBIDOPA W LEVODOPA 25/100mg TABLET PO SCH ×2 (12:35→14:00)
--- NOTE | 2025-01-21 15:32 | DVHPN2 ---
Subjective The patient is seen and examined at bedside. No complaint today. Reviewed: Care Plan, H&P, Labs, Medications, Previous Orders, Radiology Changes from previous H/P or p: No Changes Objective Vitals Vital Signs Date Time Temp Pulse Resp B/P (MAP) Pulse Ox O2 Delivery O2 Flow Rate FiO2 01/21/25 12:00 98.1 85 23 118/59 (78) 99 98.1 01/21/25 07:55 Room Air* 0 21 Intake/Output Intake and Output 01/21/25 07:00 Intake Total 2250 ml Balance 2250 ml Intake IV Total 2250 ml General Appearance: Alert, No acute distress HEENT: Atraumatic, PERRLA, EOMI, Mucous membr. moist/pink Neck: Supple Lungs: Clear to auscultation, Normal air movement Cardiovascular: Regular rate, Normal S1, Normal S2, No murmurs, Gallops, Rubs Abdomen: Normal bowel sounds, Soft, No tenderness Neuro: Cranial nerves 3-12 NL Psych/Mental Status: Mental status NL Medications Current Medications Medications Dose Ordered Sig/Jose Route Start Time Stop Time Status Last Admin Dose Admin Acetaminophen 325 mg Q4HP PRN PO 01/21/25 00:00 Enoxaparin Sodium 40 mg DAILY SC 01/21/25 10:00 01/21/25 10:16 40 MG Vancomycin HCl 0 ml @ 0 mls/hr UD IV 01/21/25 07:00 Piperacillin Sod/ Tazobactam Sod 100 ml @ 25 mls/hr Q8HR IV 01/21/25 06:00 01/21/25 14:13 25 MLS/HR Amlodipine Besylate 5 mg DAILY PO 01/21/25 04:00 01/21/25 10:17 5 MG Aspirin 81 mg DAILY PO 01/21/25 10:00 01/21/25 10:16 81 MG Gabapentin 100 mg HS PO 01/21/25 22:00 Latanoprost 1 drop QPM EACHEYE 01/21/25 18:00 Carbidopa/Levodopa 1 tab DAILY@0800 PO 01/22/25 08:00 Patient Own Medication 34 mg DAILY PO 01/21/25 10:00 01/21/25 10:18 34 MG Quetiapine Fumarate 25 mg BID PO 01/21/25 10:00 01/21/25 10:16 25 MG Carvedilol 3.125 mg BID PO 01/21/25 06:15 01/21/25 10:17 3.125 MG Carbidopa/Levodopa 1.5 tab TID PO 01/21/25 14:00 Carbidopa/Levodopa 1 tab BID@0400,1200 PO 01/21/25 12:00 01/21/25 12:35 1 TAB Vancomycin HCl 100 ml @ 200 mls/hr Q12H IV 01/21/25 17:00 Laboratory Results Laboratory Tests 01/21/25 04:00 Chemistry Test 01/20/25 19:57 01/21/25 04:00 Calcium Level 10.2 mg/dL (8.7-10.4) 9.7 mg/dL (8.7-10.4) Albumin 4.5 g/dL (3.2-4.8) Total Protein 8.0 g/dL (5.7-8.2) Cardiac Markers Test 01/20/25 19:57 B-Type Natriuretic Peptide 22.62 pg/mL (0-100) LFT Test 01/21/25 04:00 Alanine Aminotransferase (ALT) < 9 U/L (7-40) Alkaline Phosphatase 81 U/L (46-116) Aspartate Amino Transferase (AST) 16 U/L (13-40) Total Bilirubin 0.7 mg/dL (0.2-1.0) Microbiology Microbiology Date/Time Source Procedure Growth Status 01/21/25 07:50 Nose MRSA Screen - Final Complete Labs and/or images reviewed: Labs reviewed by me Assessment/Plan Assessment/Plan Acute intractable abdominal pain probable due to fecal impaction Acute on chronic toxic versus metabolic encephalopathy Lactic acidosis History of advanced Parkinson's disease History of anxiety History of dementia History of glaucoma Coronary artery disease Hypertension History of TIA Stool impaction per CT scan abdomen pelvis Continuing current management. Continuing with IV antibiotic. We will follow up with culture. Discussed in length with daughter at bedside. We will start the patient on lactulose 30 mL every 8 hours Consider Fleet enema if patient not moved bowel movement. GI consulted This medical document was created using an electronic medical record system with [employer] direct computerized dictation system. Although this document has been carefully reviewed, there may still be some phonetic and typographical errors. These areas are purely typographical due to imperfections of the software programs, and do not reflect any compromise in the patient's medical care. Plan discussed with: Daughter Date of Service: January 21, 2025 Billing Provider: ANN BOYCE MD Common Visit Codes: [id number] INP/OBS CARE(HIGH) ANN BOYCE MD January 21, 2025 15:32
[2025-01-21 17:17] LABS: Urine Bacteria None Seen /hpf (None Seen)
[2025-01-21 17:24] LABS: Urine Blood 1+ /uL (Negative); Urine Clarity Clear (Clear); Urine Color Yellow (Yellow); Urine Protein, UAD 1+ (Negative); Urine Specific Gravity 1.029 (1.001-1.035); Urine Squamous Epithelial Cell None Seen /hpf (<5); Urine Urobilinogen Normal (Negative); Urine WBC 1 /HPF (0-3)
[2025-01-21] MEDS: LATANOPROST 0.005 % OPTH(EYE) SOL 2.5ML EACHEYE SCH (18:00)
[2025-01-21] MEDS: GABAPENTIN 100 MG CAP PO SCH (18:10)
[2025-01-21] MEDS: D5W/SOD CHL 0.45% 1,000 ML IV SCH (18:11)
[2025-01-21] MEDS: VANCOMYCIN 500mg/100mL 100 ML IV SCH (18:15)
[2025-01-21 19:30] VITALS: PULSE 65; RESP 15; O2SAT 97
[2025-01-21] MEDS ORDERED: GABAPENTIN 100 MG CAP PO SCH (22:00)
[2025-01-22] MEDS ORDERED: MIDO10TA3 PO (06:51)
[2025-01-22] MEDS ORDERED: QUET50TA PO ×2 (06:54→06:55)
[2025-01-22] MEDS ORDERED: CARB25TA79 PO (06:56)
[2025-01-22 07:35] VITALS: PULSE 87; RESP 16; O2SAT 98
[2025-01-22] MEDS: CARBIDOPA W LEVODOPA 25/250mg TABLET PO SCH (12:55)
[2025-01-22] MEDS: FLEET ENEMA(ADULT) 135 ML PR ONE (14:10)
[2025-01-22] MEDS: LACTULOSE 20Gm/30ML SOLN PO SCH (17:13)
[2025-01-22 19:55] VITALS: PULSE 77; RESP 18; O2SAT 97
[2025-01-22 22:00] VITALS: BP 134/56; PULSE 64; RESP 12; TEMP 99.4; O2SAT 93
--- NOTE | 2025-01-22 23:02 | DVHPN2 ---
Subjective The patient is seen and examined at bedside. More alert awake today. Reviewed: Care Plan, H&P, Labs, Medications, Previous Orders, Radiology Changes from previous H/P or p: No Changes Objective Vitals Vital Signs Date Time Temp Pulse Resp B/P (MAP) Pulse Ox O2 Delivery O2 Flow Rate FiO2 01/22/25 20:00 110 01/22/25 19:55 98.4 18 105/58 (74) 97 98.4 01/22/25 19:55 Room Air* 0 21 Intake/Output Intake and Output 01/22/25 07:00 Intake Total 1500 ml Balance 1500 ml Intake IV Total 1500 ml General Appearance: Alert, Cooperative, No acute distress HEENT: Atraumatic, PERRLA, EOMI, Mucous membr. moist/pink Neck: Supple Lungs: Clear to auscultation, Normal air movement Cardiovascular: Regular rate, Normal S1, Normal S2, No murmurs, Gallops, Rubs Abdomen: Normal bowel sounds, Soft, No tenderness Neuro: Cranial nerves 3-12 NL Psych/Mental Status: Mental status NL Medications Current Medications Medications Dose Ordered Sig/Jose Route Start Time Stop Time Status Last Admin Dose Admin Acetaminophen 325 mg Q4HP PRN PO 01/21/25 00:00 Enoxaparin Sodium 40 mg DAILY SC 01/21/25 10:00 01/22/25 09:54 40 MG Vancomycin HCl 0 ml @ 0 mls/hr UD IV 01/21/25 07:00 Piperacillin Sod/ Tazobactam Sod 100 ml @ 25 mls/hr Q8HR IV 01/21/25 06:00 01/22/25 22:41 25 MLS/HR Amlodipine Besylate 5 mg DAILY PO 01/21/25 04:00 01/21/25 10:17 5 MG Aspirin 81 mg DAILY PO 01/21/25 10:00 01/21/25 10:16 81 MG Latanoprost 1 drop QPM EACHEYE 01/21/25 18:00 Carbidopa/Levodopa 1 tab DAILY@0800 PO 01/22/25 08:00 Patient Own Medication 34 mg DAILY PO 01/21/25 10:00 01/21/25 10:18 34 MG Quetiapine Fumarate 25 mg BID PO 01/21/25 10:00 01/21/25 10:16 25 MG Carvedilol 3.125 mg BID PO 01/21/25 06:15 01/21/25 10:17 3.125 MG Carbidopa/Levodopa 1.5 tab TID PO 01/21/25 14:00 Carbidopa/Levodopa 1 tab BID@0400,1200 PO 01/21/25 12:00 01/21/25 12:35 1 TAB Vancomycin HCl 100 ml @ 200 mls/hr Q12H IV 01/21/25 17:00 01/22/25 17:35 200 MLS/HR Dextrose/Sodium Chloride 1,000 ml @ 75 mls/hr [id number] IV 01/21/25 17:45 01/22/25 08:11 75 MLS/HR Gabapentin 100 mg QPM PO 01/21/25 18:00 01/21/25 18:10 100 MG Lactulose 30 ml Q6HR PO 01/22/25 18:00 01/22/25 17:13 30 ML Laboratory Results Laboratory Tests 01/21/25 04:00 Urinalysis Test 01/21/25 17:00 Urine Color Yellow (Yellow) Urine Clarity Clear (Clear) Urine pH 5.0 (5.0-9.0) Urine Specific [place] 1.029 (1.001-1.035) Urine Protein 1+ (Negative) H Urine Ketones 1+ (Negative) H Urine Blood 1+ /uL (Negative) H Urine Nitrite Negative (Negative) Urine Bilirubin Negative (Negative) Urine Urobilinogen Normal mg/dL (Negative) Urine Leukocyte Esterase Negative /uL (Negative) Urine RBC 6 /hpf (0 - 3) Urine Microscopic WBC 1 /HPF (0-3) Urine Squamous Epithelial Cells None seen /hpf (<5) Urine Bacteria None seen /hpf (None Seen) Urine Glucose Trace mg/dL (Normal) Microbiology Microbiology Date/Time Source Procedure Growth Status 01/21/25 07:50 Nose MRSA Screen - Final Complete 01/20/25 21:50 Blood Blood Culture - Preliminary NO GROWTH AFTER 48 HOURS OF INCUBATION. Resulted Labs and/or images reviewed: Labs reviewed by me Assessment/Plan Assessment/Plan Acute intractable abdominal pain probable due to fecal impaction Acute on chronic toxic versus metabolic encephalopathy Lactic acidosis History of advanced Parkinson's disease History of anxiety History of dementia History of glaucoma Coronary artery disease Hypertension History of TIA Stool impaction per CT scan abdomen pelvis Continuing current management. Continuing with IV antibiotic. We will follow up with culture. Discussed in length with daughter at bedside. We will start the patient on lactulose 30 mL every 8 hours Will give Fleet enema today. GI consulted This medical document was created using an electronic medical record system with [employer] direct computerized dictation system. Although this document has been carefully reviewed, there may still be some phonetic and typographical errors. These areas are purely typographical due to imperfections of the software programs, and do not reflect any compromise in the patient's medical care. Plan discussed with: Spouse My Orders Orders - ANN BOYCE MD Procedure Category Date Status Time Lactulose Oral PHA 01/22/25 In Process 18:00 * Gi [facility] Director Network Development CONS 01/22/25 Transmitted 13:58 Date of Service: January 22, 2025 Billing Provider: ANN BOYCE MD Common Visit Codes: [id number] INP/OBS CARE(HIGH) ANN BOYCE MD January 22, 2025 23:02
[2025-01-23] VITALS (10 sets, daily range): BP systolic 112–193; BP diastolic 7–102; PULSE 8–96; RESP 14–16; TEMP 97.5–99.4; O2SAT 94–97
--- NOTE | 2025-01-23 12:21 | DVHPN2 ---
Progress Note Date Seen: January 23, 2025 Medical Necessity Reason Pt with a Central, PICC or Fol: No Subjective Patient reports: No new complaints Review of Systems: HEENT:Normal, CVS:Normal, RESPIRATORY:Normal, GI:Normal, :Normal, MSK:Normal, NEURO:Normal Objective vital signs Vital Sign Date Time Temp Pulse Resp B/P (MAP) Pulse Ox O2 Delivery O2 Flow Rate FiO2 01/23/25 09:00 97.8 87 16 175/93 (120) 96 97.8 01/23/25 08:15 Room Air* 0 21 Total Intake and Output 01/22/25 01/22/25 01/23/25 15:00 23:00 07:00 Intake Total 425 ml 375 ml 1100 ml Balance 425 ml 375 ml 1100 ml medications Current Medications Medications Dose Ordered Sig/Jose Route Start Time Stop Time Status Last Admin Dose Admin Acetaminophen 325 mg Q4HP PRN PO 01/21/25 00:00 Enoxaparin Sodium 40 mg DAILY SC 01/21/25 10:00 01/23/25 09:52 40 MG Vancomycin HCl 0 ml @ 0 mls/hr UD IV 01/21/25 07:00 Piperacillin Sod/ Tazobactam Sod 100 ml @ 25 mls/hr Q8HR IV 01/21/25 06:00 01/23/25 06:16 25 MLS/HR Amlodipine Besylate 5 mg DAILY PO 01/21/25 04:00 01/21/25 10:17 5 MG Aspirin 81 mg DAILY PO 01/21/25 10:00 01/21/25 10:16 81 MG Latanoprost 1 drop QPM EACHEYE 01/21/25 18:00 Carbidopa/Levodopa 1 tab DAILY@0800 PO 01/22/25 08:00 Patient Own Medication 34 mg DAILY PO 01/21/25 10:00 01/21/25 10:18 34 MG Quetiapine Fumarate 25 mg BID PO 01/21/25 10:00 01/21/25 10:16 25 MG Carvedilol 3.125 mg BID PO 01/21/25 06:15 01/21/25 10:17 3.125 MG Carbidopa/Levodopa 1.5 tab TID PO 01/21/25 14:00 Carbidopa/Levodopa 1 tab BID@0400,1200 PO 01/21/25 12:00 01/21/25 12:35 1 TAB Vancomycin HCl 100 ml @ 200 mls/hr Q12H IV 01/21/25 17:00 01/22/25 17:35 200 MLS/HR Dextrose/Sodium Chloride 1,000 ml @ 75 mls/hr [id number] IV 01/21/25 17:45 01/23/25 06:16 75 MLS/HR Gabapentin 100 mg QPM PO 01/21/25 18:00 01/21/25 18:10 100 MG Lactulose 30 ml Q6HR PO 01/22/25 18:00 01/22/25 17:13 30 ML Examination: GENERAL:Normal, HEENT:Normal, NECK:Normal, LUNGS:Normal, CVS:Normal, ABDOMEN:Normal, MSK:Normal, SKIN:Normal, NEURO:Normal, NEURO:Abnormal (contractures), :Normal laboratory and microbiology Laboratory Tests 01/23/25 04:57 01/21/25 04:00 Test 01/21/25 04:00 Range/Units Serum Glucose 113 H 74-106 mg/dL Microbiology Date/Time Source Procedure Growth Status 01/21/25 07:50 Nose MRSA Screen - Final Complete 01/20/25 21:50 Blood Blood Culture - Preliminary NO GROWTH AFTER 48 HOURS OF INCUBATION. Resulted Problem List/Assessment/Plan Problem List/Assessment/Plan #1 encephalopathy ?metabolic #2 dementia #3 fecal impaction: improved #4 Parkinson's;cont meds #5 htn #6 s/p pacer #7 ?dysphagia: repeat swallow #8 functional quadriplegia advance care planning- full code per - time spent 21 mins Plan discussed with: Patient, Spouse My Orders My Orders Orders - CARIN WOODS MD Procedure Category Date Status Time Hydralazine Injection PHA 01/23/25 Verified (Apresoline Inject 12:15 * Swallow Request ST 01/23/25 Verified 12:14 * Metal Can Inspector CONS 01/23/25 Verified Consult Date of Service: January 23, 2025 Billing Provider: CARIN WOODS MD Common Visit Codes: [id number] INP/OBS CARE(HIGH) Secondary Visit Codes: [id number] CARE PLAN 30 MINUTES CARIN WOODS MD January 23, 2025 12:21
[2025-01-23] MEDS: hydrALAZINE HCL 20 MG/ML VL IV PRN (13:13)
--- NOTE | 2025-01-23 13:20 | DVHPN2 ---
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 AMS vital signs Vital Sign Date Time Temp Pulse Resp B/P (MAP) Pulse Ox O2 Delivery O2 Flow Rate FiO2 01/23/25 13:13 191/102 01/23/25 09:00 97.8 87 16 96 97.8 01/23/25 08:15 Room Air* 0 21 Total Intake and Output 01/22/25 01/22/25 01/23/25 14:59 22:59 06:59 Intake Total 350 ml 450 ml 1100 ml Balance 350 ml 450 ml 1100 ml medications Current Medications Medications Dose Ordered Sig/Jose Route Start Time Stop Time Status Last Admin Dose Admin Acetaminophen 325 mg Q4HP PRN PO 01/21/25 00:00 Enoxaparin Sodium 40 mg DAILY SC 01/21/25 10:00 01/23/25 09:52 40 MG Amlodipine Besylate 5 mg DAILY PO 01/21/25 04:00 01/21/25 10:17 5 MG Aspirin 81 mg DAILY PO 01/21/25 10:00 01/21/25 10:16 81 MG Latanoprost 1 drop QPM EACHEYE 01/21/25 18:00 Carbidopa/Levodopa 1 tab DAILY@0800 PO 01/22/25 08:00 Patient Own Medication 34 mg DAILY PO 01/21/25 10:00 01/21/25 10:18 34 MG Quetiapine Fumarate 25 mg BID PO 01/21/25 10:00 01/21/25 10:16 25 MG Carvedilol 3.125 mg BID PO 01/21/25 06:15 01/21/25 10:17 3.125 MG Carbidopa/Levodopa 1.5 tab TID PO 01/21/25 14:00 Carbidopa/Levodopa 1 tab BID@0400,1200 PO 01/21/25 12:00 01/21/25 12:35 1 TAB Dextrose/Sodium Chloride 1,000 ml @ 75 mls/hr [id number] IV 01/21/25 17:45 01/23/25 06:16 75 MLS/HR Gabapentin 100 mg QPM PO 01/21/25 18:00 01/21/25 18:10 100 MG Lactulose 30 ml Q6HR PO 01/22/25 18:00 01/22/25 17:13 30 ML Hydralazine HCl 10 mg Q6HP PRN IV 01/23/25 12:15 01/23/25 13:13 10 MG laboratory and microbiology Laboratory Tests 01/23/25 04:57 01/21/25 04:00 Test 01/21/25 04:00 Range/Units Serum Glucose 113 H 74-106 mg/dL Problem List KNOW PARKINSONS NERVE STIMULATOR HTN 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
--- NOTE | 2025-01-23 14:11 | DVH ---
EXAM: XY CHEST PORTABLE Indication: pacemaker Technique: Single frontal view of the chest was obtained Comparison: XY CHEST PORTABLE on DOS: 01/20/25, CHEST PORTABLE on DOS: 03/11/21 FINDINGS: Lines and Tubes: Cardiac pacemaker projects over left chest wall. Additional electrical device projec ts over the right chest wall. Lungs: No focal consolidation. Pleura: No effusion. No pneumothorax. Cardiomediastinal contours: Unremarkable. Atherosclerotic vascular calcifications of the thoracic ao rta are noted. Bones: No acute osseous abnormality. IMPRESSION: No acute cardiopulmonary disease.
--- NOTE | 2025-01-23 22:06 | DVHINCON2 ---
Date of service: January 23, 2025 Referring Physician Najma Condon Reason for Consultation Fecal impaction History of Present Illness Patient is a 79-year-old male with past medical history of advanced Parkinson's disease, dysarthria, hypertension, CAD s/p pacemaker, TIA, anxiety, vascular disease, dementia, who was brought in due to increasing agitation. Patient is minimally verbal at baseline, per patient's at bedside patient has been increasingly agitated for the last 1 week. According to the , patient usually has hallucinations and difficulty speaking, however, over the last 1 week he has been having increasing hallucinations and is difficulty speaking as progressively worsened as has his mentation. Per patient has been bed- bound for the last 2 years due to his advanced Parkinson's disease. GI was consulted for suspected fecal impaction. Patient was treated with lactulose and has had multiple bowel movements today Past Medical History Past Medical History advanced Parkinson's disease, dysarthria, hypertension, CAD s/p pacemaker, TIA, anxiety, vascular disease, dementia Past Surgical History Past Surgical History Hernia repair surgery, pacemaker implantation, neurostimulator implantation Family History: Diabetes mellitus G8 SISTER FH: dementia FH: leukemia G8 MOTHER Allergies: Coded Allergies: Iodine (Verified Allergy, Mild, HIVES, 02/01/10) Fluoxetine (Verified Allergy, Unknown, 01/22/25) Home Meds Reported Medications Carbidopa-Levodopa (Carbidopa/Levodopa Odt 25-100 mg) 1 Tab Tab, 1.5 TAB PO TID, TAB 01/22/25 Quetiapine Fumerate (Seroquel) 50 Mg Tab, 25 MG PO DAILY, TAB 01/22/25 Quetiapine Fumerate (Seroquel) 50 Mg Tab, 1 TAB PO QPM, #30 TAB 01/22/25 Midodrine Hcl (Midodrine Hcl) 10 Mg Tab, 15 MG PO PRN for prn, TAB 01/22/25 Pimavanserin Tartrate (Nuplazid) 34 Mg Cap, 34 MG PO DAILY, CAP 01/22/25 Carvedilol (Carvedilol) 3.125 Mg Tab, 1 TAB PO BID, #60 TAB 3 Refills 01/22/25 Carvedilol (Carvedilol) 3.125 Mg Tab, 3.125 MG PO BID for 30 Days, MG 01/21/25 Latanoprost (LATANOPROST) 0.005 % Matilde, 1 DROP EACHEYE QPM, #7.5 ML 3 Refills 03/12/21 Amlodipine Besylate (Amlodipine Besylate) 5 Mg Tab, 1 TAB PO, #30 TAB 5 Refills 03/11/21 Gabapentin (Gabapentin) 100 Mg Cap, 2 CAP PO HS, #90 CAP 2 Refills 03/11/21 Divalproex Sodium (Depakote) 250 Mg Tab, 0.5 TAB PO BID, #60 TAB 2 Refills 03/11/21 Pimavanserin Tartrate (Nuplazid) 34 Mg Cap, 34 MG PO DAILY, CAP 03/11/21 Carbidopa-Levodopa (Carbidopa/Levodopa Odt 25-100 mg) 1 Tab Tab, 1 TAB PO HS, TAB 03/11/21 Carbidopa-Levodopa (Carbidopa/Levodopa Odt 25-100 mg) 1 Tab Tab, 1.5 TAB PO Q4HR, TAB 03/11/21 Carbidopa-Levodopa (Carbidopa/Levodopa Odt 25-250 mg) 1 Tab Tab, 1 TAB PO DAILY, TAB 03/11/21 Donepezil Hydrochloride (DONEPEZIL HCL) 10 Mg Tab, 10 MG PO HS, TAB 03/11/21 Aspirin (Aspir-81) 81 Mg Tab, 81 MG PO DAILY, TAB 02/17/17 Dorzolamide Hcl-Timolol Maleat (COSOPT PF) Matilde, 1 OP BID 02/17/17 Brimonidine Tartrate (Alphagan P) 0.1 % Matilde, 0.1 % OP BID 02/17/17 Calcium (Calcium Kiki-Max) 1 Cap Cap 02/01/10 Discontinued Reported Medications Quetiapine Fumerate (Seroquel) 50 Mg Tab, 0.5 TAB PO BID, #30 TAB 2 Refills 03/11/21 Current Medications Current Medications Medications (Trade) Dose Ordered Sig/Jose Route PRN Reason Start Time Stop Time Status Last Admin Hydralazine HCl (Apresoline Injection) 10 mg Q6HP PRN IV SBP>150 01/23/25 12:15 01/23/25 13:13 Vital Signs Vital Signs Date Time Temp Pulse Resp B/P (MAP) Pulse Ox O2 Delivery O2 Flow Rate FiO2 01/23/25 20:37 97.5 8 16 153/74 (100) 95 97.5 01/23/25 08:15 Room Air* 0 21 Physical Exam General Appearance: Alert, No acute distress HEENT: Atraumatic, PERRLA, EOMI, Mucous membr. moist/pink Neck: Supple Lungs: Clear to auscultation, Normal air movement Cardiovascular: Regular rate, Normal S1, Normal S2, No murmurs, Gallops, Rubs Abdomen: Normal bowel sounds, Soft, No tenderness Neuro: Cranial nerves 3-12 NL Psych/Mental Status: Mental status NL Labs/Diagnostic Data Labs Test 01/23/25 04:57 01/21/25 17:00 01/21/25 07:50 01/21/25 04:00 Range/Units Creatinine 0.95 0.700-1.30 mg/dL Glomerular Filtration Rate Calc 81 >90 mL/min Vancomycin Level Trough 9.2 5-10 ug/mL Urine Color Yellow Yellow Urine Clarity Clear Clear Urine pH 5.0 5.0-9.0 Urine Specific [place] 1.029 1.001-1.035 Urine Protein 1+ H Negative Urine Ketones 1+ H Negative Urine Blood 1+ H Negative /uL Urine Nitrite Negative Negative Urine Bilirubin Negative Negative Urine Urobilinogen Normal Negative mg/dL Urine Leukocyte Esterase Negative Negative /uL Urine RBC 6 0 - 3 /hpf Urine Microscopic WBC 1 0-3 /HPF Urine Squamous Epithelial Cells None seen <5 /hpf Urine Bacteria None seen None Seen /hpf Urine Glucose Trace Normal mg/dL Influenza Type A Antigen Negative Negative Influenza Type B Antigen Negative Negative SARS-CoV-2 Antigen (Rapid) Negative NEGATIVE White Blood Count 5.8 4.4-10.8 10^3/uL Red Blood Count 3.81 L 4.5-5.90 10^6/uL Hemoglobin 12.8 L 13.5-17.5 g/dL Hematocrit 36.9 L 41.0-53.0 % Mean Corpuscular Volume 96.9 80.0-100.0 fL Mean Corpuscular Hemoglobin 33.5 H 28.0-32.0 pg Mean Corpuscular Hemoglobin Concent 34.6 32.0-36.0 g/dL Red Cell Distribution Width 13.7 11.8-14.3 % Platelet Count 338 140-450 10^3/uL Mean Platelet Volume 8.0 6.9-10.8 fL Neutrophils (%) (Auto) 81.1 H 37.0-80.0 % Lymphocytes (%) (Auto) 10.5 10.0-50.0 % Monocytes (%) (Auto) 7.3 0.0-12.0 % Eosinophils (%) (Auto) 0.4 0.0-7.0 % Basophils (%) (Auto) 0.7 0.0-2.0 % Neutrophils # (Auto) 4.7 1.6-8.6 10 ^3/uL Lymphocytes # (Auto) 0.6 0.4-5.4 10 ^3/uL Monocytes # (Auto) 0.4 0-1.3 10 ^3/uL Eosinophils # (Auto) 0 0-0.8 10 ^3/uL Basophils # (Auto) 0 0-0.2 10 ^3/uL Nucleated Red Blood Cells 0.1 % Sodium Level 140 136-145 mmol/L Potassium Level 4.4 3.5-5.1 mmol/L Chloride Level 105 98-107 mmol/L Carbon Dioxide Level 25 20-31 mmol/L Anion Gap 10 5-15 Blood Urea Nitrogen 13 9-23 mg/dL BUN/Creatinine Ratio 14.9 10.0-20.0 Serum Glucose 113 H 74-106 mg/dL Calcium Level 9.7 8.7-10.4 mg/dL Total Bilirubin 0.7 0.2-1.0 mg/dL Aspartate Amino Transferase (AST) 16 13-40 U/L Alanine Aminotransferase (ALT) < 9 7-40 U/L Alkaline Phosphatase 81 46-116 U/L Total Protein 8.0 5.7-8.2 g/dL Albumin 4.5 3.2-4.8 g/dL Test 01/20/25 21:50 01/20/25 21:00 01/20/25 19:57 Range/Units Lactic Acid Level 1.0 0.4-2.0 mmol/L Troponin I High Sensitivity 4 </=54 ng/L B-Type Natriuretic Peptide 22.62 0-100 pg/mL Microbiology Date/Time Source Procedure Growth Status 01/21/25 07:50 Nose MRSA Screen - Final Complete 01/20/25 21:50 Blood Blood Culture - Preliminary NO GROWTH AFTER 72 HOURS OF INCUBATION. Resulted ABD PELVIC CT SCAN IMPRESSION: 1. Dilated stool impacted rectum measuring up to 9.6 cm. Problems(with codes): (1) Generalized weakness (2) Parkinsons disease (3) Metabolic encephalopathy (4) Intractable abdominal pain (5) Constipation Plan/Recommendation Plan Patient was treated with lactulose and has had multiple bowel movements today There was no nausea vomiting and he is clinically better Continue supportive care ;Repeat KUB in a.m. Maintain on stool softeners MiraLax 17 g p.o. daily or as needed Or give the patient a prescription for lactulose 30 mL p.o. daily or as needed Outpatient follow up with GI Services for any further GI workup if required Once again thank you for allowing me to participate in the care of this patient Plan discussed with: Patient FADY PECK MD January 23, 2025 22:06
[2025-01-24 05:00] VITALS: BP 166/78; PULSE 70; RESP 16; TEMP 97.5; O2SAT 97
--- NOTE | 2025-01-24 07:26 | DVH ---
EXAM: XR Abdomen, 1 View CLINICAL INDICATION: fecal impaction TECHNIQUE: Frontal supine view of the abdomen/pelvis. COMPARISON: None FINDINGS: GASTROINTESTINAL TRACT: Constipation with suggestion of fecal impaction of the rectum. No dilation . BONES/JOINTS: Unremarkable. No acute fracture. OTHER FINDINGS: . IMPRESSION: Constipation with suggestion of fecal impaction of the rectum.
--- NOTE | 2025-01-24 07:33 | DVHPN2 ---
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 AMS vital signs Vital Sign Date Time Temp Pulse Resp B/P (MAP) Pulse Ox O2 Delivery O2 Flow Rate FiO2 01/24/25 05:14 166/78 01/24/25 05:00 97.5 70 16 97 97.5 01/23/25 20:00 Room Air* 0 21 Total Intake and Output 01/23/25 01/23/25 01/24/25 15:00 23:00 07:00 Intake Total 0 ml 150 ml Balance 0 ml 150 ml medications Current Medications Medications Dose Ordered Sig/Jose Route Start Time Stop Time Status Last Admin Dose Admin Acetaminophen 325 mg Q4HP PRN PO 01/21/25 00:00 Enoxaparin Sodium 40 mg DAILY SC 01/21/25 10:00 01/23/25 09:52 40 MG Amlodipine Besylate 5 mg DAILY PO 01/21/25 04:00 01/21/25 10:17 5 MG Aspirin 81 mg DAILY PO 01/21/25 10:00 01/21/25 10:16 81 MG Latanoprost 1 drop QPM EACHEYE 01/21/25 18:00 01/23/25 17:42 1 DROP Carbidopa/Levodopa 1 tab DAILY@0800 PO 01/22/25 08:00 Patient Own Medication 34 mg DAILY PO 01/21/25 10:00 01/21/25 10:18 34 MG Quetiapine Fumarate 25 mg BID PO 01/21/25 10:00 01/23/25 21:39 25 MG Carvedilol 3.125 mg BID PO 01/21/25 06:15 01/23/25 21:43 3.125 MG Carbidopa/Levodopa 1.5 tab TID PO 01/21/25 14:00 01/24/25 06:35 1.5 TAB Carbidopa/Levodopa 1 tab BID@0400,1200 PO 01/21/25 12:00 01/24/25 05:13 1 TAB Dextrose/Sodium Chloride 1,000 ml @ 75 mls/hr [id number] IV 01/21/25 17:45 01/23/25 06:16 75 MLS/HR Gabapentin 100 mg QPM PO 01/21/25 18:00 01/21/25 18:10 100 MG Lactulose 30 ml Q6HR PO 01/22/25 18:00 01/24/25 06:35 30 ML Hydralazine HCl 10 mg Q6HP PRN IV 01/23/25 12:15 01/24/25 05:14 10 MG laboratory and microbiology Laboratory Tests 01/23/25 04:57 01/21/25 04:00 Test 01/21/25 04:00 Range/Units Serum Glucose 113 H 74-106 mg/dL Problem List KNOW PARKINSONS NERVE STIMULATOR HTN 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 start @ 20ml/hr, increase 10ml/hr Q4H until goal is reached. water flush 200ml Q6H if allowed. 3) Advance diet as medically feasible Expected Outcomes/Goals: to meet 75% estimated needs within 7 days FU 2-3 days Body Fat Depletion (Non Severe: Mild Depletion Muscle Mass (Severe): Mod to Severe Depletion Plan discussed with: Patient, Spouse ETHAN MELVIN MD January 24, 2025 07:33
[2025-01-24 09:00] VITALS: BP 117/56; PULSE 65; RESP 17; TEMP 97.9; O2SAT 96
--- NOTE | 2025-01-24 12:09 | DVHPN2 ---
Progress Note Date Seen: January 24, 2025 Medical Necessity Reason Pt with a Central, PICC or Fol: No Subjective Patient reports: No new complaints Review of Systems: HEENT:Normal, CVS:Normal, RESPIRATORY:Normal, GI:Normal, :Normal, MSK:Normal, NEURO:Normal Objective vital signs Vital Sign Date Time Temp Pulse Resp B/P (MAP) Pulse Ox O2 Delivery O2 Flow Rate FiO2 01/24/25 09:00 97.9 65 17 117/56 (76) 96 97.9 01/24/25 07:57 Room Air* 0 21 Total Intake and Output 01/23/25 01/23/25 01/24/25 15:00 23:00 07:00 Intake Total 0 ml 150 ml Balance 0 ml 150 ml medications Current Medications Medications Dose Ordered Sig/Jose Route Start Time Stop Time Status Last Admin Dose Admin Acetaminophen 325 mg Q4HP PRN PO 01/21/25 00:00 Enoxaparin Sodium 40 mg DAILY SC 01/21/25 10:00 01/23/25 09:52 40 MG Amlodipine Besylate 5 mg DAILY PO 01/21/25 04:00 01/21/25 10:17 5 MG Aspirin 81 mg DAILY PO 01/21/25 10:00 01/21/25 10:16 81 MG Latanoprost 1 drop QPM EACHEYE 01/21/25 18:00 01/23/25 17:42 1 DROP Carbidopa/Levodopa 1 tab DAILY@0800 PO 01/22/25 08:00 Patient Own Medication 34 mg DAILY PO 01/21/25 10:00 01/21/25 10:18 34 MG Quetiapine Fumarate 25 mg BID PO 01/21/25 10:00 01/23/25 21:39 25 MG Carvedilol 3.125 mg BID PO 01/21/25 06:15 01/23/25 21:43 3.125 MG Carbidopa/Levodopa 1.5 tab TID PO 01/21/25 14:00 01/24/25 06:35 1.5 TAB Carbidopa/Levodopa 1 tab BID@0400,1200 PO 01/21/25 12:00 01/24/25 05:13 1 TAB Dextrose/Sodium Chloride 1,000 ml @ 75 mls/hr [id number] IV 01/21/25 17:45 01/23/25 06:16 75 MLS/HR Gabapentin 100 mg QPM PO 01/21/25 18:00 01/21/25 18:10 100 MG Lactulose 30 ml Q6HR PO 01/22/25 18:00 01/24/25 06:35 30 ML Hydralazine HCl 10 mg Q6HP PRN IV 01/23/25 12:15 01/24/25 05:14 10 MG Examination: GENERAL:Normal, HEENT:Normal, NECK:Normal, LUNGS:Normal, CVS:Normal, ABDOMEN:Normal, MSK:Normal, SKIN:Normal, NEURO:Normal, :Normal laboratory and microbiology Laboratory Tests 01/23/25 04:57 01/21/25 04:00 Test 01/21/25 04:00 Range/Units Serum Glucose 113 H 74-106 mg/dL Microbiology Date/Time Source Procedure Growth Status 01/21/25 07:50 Nose MRSA Screen - Final Complete 01/20/25 21:50 Blood Blood Culture - Preliminary NO GROWTH AFTER 72 HOURS OF INCUBATION. Resulted Problem List/Assessment/Plan Problem List/Assessment/Plan #1 encephalopathy ?metabolic #2 dementia #3 fecal impaction: enemia #4 Parkinson's;cont meds #5 htn #6 s/p pacer #7 ?dysphagia: pureed diet #8 functional quadriplegia advance care planning- full code per - time spent 21 mins Plan discussed with: Patient, Spouse My Orders My Orders Orders - CARIN WOODS MD Procedure Category Date Status Time Hydralazine Injection PHA 01/23/25 In Process (Apresoline Inject 12:15 * Swallow Request ST 01/23/25 Transmitted 12:14 * Pearler CONS 01/23/25 Transmitted Consult Discontinue Tele CELINA 01/23/25 In Process 12:14 Transfer Orders XFER 01/23/25 Transmitted 12:14 Chest Portable XY 01/23/25 Resulted 12:14 Kub Abdomen Single XY 01/24/25 Resulted View 06:00 * Cardiology Consult CONS 01/23/25 Transmitted 12:14 Notify Provider NOTICE 01/23/25 Transmitted Malnutrition 15:34 Increase Calorie NOURISH 01/23/25 Transmitted Intake 15:34 Nutritional NOURISH 01/23/25 Transmitted Supplements 15:34 Pureed DIET 01/23/25 Transmitted Dinner Apply Z-Guard CELINA 01/24/25 In Process 06:54 Dietary Evaluation Review Recommendations by RD: Increase Calorie Intake, PPN/TPN Comments: Pt is at risk of malnutrition d/t low BMI - 18.4kg/m2, malnourished w/ mild fat depletion and moderate muscle wasting, and NPO x 4 days Nutrition Recommendation; 1) PN/TPN to meet at least 75% estimated needs 2) If NGT is in place, TF Jevity 1.2Cal @ 70ml/hr x 24hr (goal). start @ 20ml/hr, increase 10ml/hr Q4H until goal is reached. water flush 200ml Q6H if allowed. 3) Advance diet as medically feasible Expected Outcomes/Goals: to meet 75% estimated needs within 7 days FU 2-3 days Body Fat Depletion (Non Severe: Mild Depletion Muscle Mass (Severe): Mod to Severe Depletion Date of Service: January 24, 2025 Billing Provider: CARIN WOODS MD Common Visit Codes: [id number] INP/OBS CARE(HIGH) CARIN WOODS MD January 24, 2025 12:09
[2025-01-24 13:00] VITALS: BP 128/68; PULSE 85; RESP 19; TEMP 98.3; O2SAT 96
[2025-01-24 17:00] VITALS: BP 149/75; PULSE 73; RESP 18; TEMP 97.2; O2SAT 96
[2025-01-24 20:00] VITALS: PULSE 65; RESP 15; O2SAT 95
[2025-01-24 21:00] VITALS: BP 114/60; PULSE 65; RESP 16; TEMP 98.2; O2SAT 95
[2025-01-24] MEDS: ACETAMINOPHEN 325 MG TAB PO PRN (22:22)
--- NOTE | 2025-01-24 23:03 | DVHPN2 ---
Progress Note - Dictate Date Seen: January 24, 2025 Medical Necessity Reason Pt with a Central, PICC or Fol: No Subjective Multiple bowel movements Patient resting comfortably No GI bleeding reported vital signs Vital Sign Date Time Temp Pulse Resp B/P (MAP) Pulse Ox O2 Delivery O2 Flow Rate FiO2 01/24/25 22:22 65 114/60 01/24/25 21:00 98.2 16 95 98.2 01/24/25 07:57 Room Air* 0 21 Total Intake and Output 01/23/25 01/23/25 01/24/25 15:00 23:00 07:00 Intake Total 0 ml 150 ml Balance 0 ml 150 ml medications Current Medications Medications Dose Ordered Sig/Jose Route Start Time Stop Time Status Last Admin Dose Admin Acetaminophen 325 mg Q4HP PRN PO 01/21/25 00:00 01/24/25 22:22 325 MG Enoxaparin Sodium 40 mg DAILY SC 01/21/25 10:00 01/24/25 12:13 40 MG Amlodipine Besylate 5 mg DAILY PO 01/21/25 04:00 01/21/25 10:17 5 MG Aspirin 81 mg DAILY PO 01/21/25 10:00 01/21/25 10:16 81 MG Latanoprost 1 drop QPM EACHEYE 01/21/25 18:00 01/23/25 17:42 1 DROP Carbidopa/Levodopa 1 tab DAILY@0800 PO 01/22/25 08:00 Patient Own Medication 34 mg DAILY PO 01/21/25 10:00 01/21/25 10:18 34 MG Quetiapine Fumarate 25 mg BID PO 01/21/25 10:00 01/24/25 22:22 25 MG Carvedilol 3.125 mg BID PO 01/21/25 06:15 01/24/25 22:22 3.125 MG Carbidopa/Levodopa 1.5 tab TID PO 01/21/25 14:00 01/24/25 22:21 1.5 TAB Carbidopa/Levodopa 1 tab BID@0400,1200 PO 01/21/25 12:00 01/24/25 05:13 1 TAB Dextrose/Sodium Chloride 1,000 ml @ 75 mls/hr [id number] IV 01/21/25 17:45 01/24/25 12:19 75 MLS/HR Gabapentin 100 mg QPM PO 01/21/25 18:00 01/21/25 18:10 100 MG Lactulose 30 ml Q6HR PO 01/22/25 18:00 01/24/25 06:35 30 ML Hydralazine HCl 10 mg Q6HP PRN IV 01/23/25 12:15 01/24/25 05:14 10 MG objective General Appearance: Alert, No acute distress HEENT: Atraumatic, PERRLA, EOMI, Mucous membr. moist/pink Neck: Supple Lungs: Clear to auscultation, Normal air movement Cardiovascular: Regular rate, Normal S1, Normal S2, No murmurs, Gallops, Rubs Abdomen: Normal bowel sounds, Soft, No tenderness Neuro: Cranial nerves 3-12 NL Psych/Mental Status: Mental status NL laboratory and microbiology Laboratory Tests 01/23/25 04:57 01/21/25 04:00 Test 01/21/25 04:00 Range/Units Serum Glucose 113 H 74-106 mg/dL Problems(with codes): (1) Constipation (2) Intractable abdominal pain (3) Metabolic encephalopathy (4) Parkinsons disease (5) Generalized weakness Prognosis Plan Patient was given one more fleets enema today We will maintain him on lactulose and Colace Advance diet as tolerated Discharge planning to SNF in a.m. Dietary Evaluation Review Recommendations by RD: Increase Calorie Intake, PPN/TPN Comments: Pt is at risk of malnutrition d/t low BMI - 18.4kg/m2, malnourished w/ mild fat depletion and moderate muscle wasting, and NPO x 4 days Nutrition Recommendation; 1) PN/TPN to meet at least 75% estimated needs 2) If NGT is in place, TF Jevity 1.2Cal @ 70ml/hr x 24hr (goal). start @ 20ml/hr, increase 10ml/hr Q4H until goal is reached. water flush 200ml Q6H if allowed. 3) Advance diet as medically feasible Expected Outcomes/Goals: to meet 75% estimated needs within 7 days FU 2-3 days Body Fat Depletion (Non Severe: Mild Depletion Muscle Mass (Severe): Mod to Severe Depletion Plan discussed with: Patient, Other (Sitter) FADY PECK MD January 24, 2025 23:03
[2025-01-25 01:00] VITALS: BP 148/67; PULSE 67; RESP 16; TEMP 98.4; O2SAT 96
[2025-01-25 05:00] VITALS: BP 162/87; PULSE 66; RESP 18; TEMP 98.5; O2SAT 97
[2025-01-25 08:00] VITALS: PULSE 74; RESP 17; O2SAT 97
[2025-01-25 08:30] VITALS: BP 132/71; PULSE 67; RESP 18; TEMP 98.5; O2SAT 96
--- NOTE | 2025-01-25 11:06 | DVHDS2 ---
Discharge Summary Date of Admission January 20, 2025 at 23:48 Date of Discharge: January 25, 2025 Labs/Diagnostic Data: Laboratory Results Test 01/24/25 05:40 01/23/25 04:57 01/21/25 17:00 01/21/25 07:50 Carcinoembryonic Antigen 1.76 ng/mL (<=5.0) Thyroid Stimulating Hormone (TSH) 1.16 uIU/mL (0.55-4.78) Creatinine 0.95 mg/dL (0.700-1.30) Glomerular Filtration Rate Calc 81 mL/min (>90) Vancomycin Level Trough 9.2 ug/mL (5-10) Urine Color Yellow (Yellow) Urine Clarity Clear (Clear) Urine pH 5.0 (5.0-9.0) Urine Specific [place] 1.029 (1.001-1.035) Urine Protein 1+ (Negative) Urine Ketones 1+ (Negative) Urine Blood 1+ /uL (Negative) Urine Nitrite Negative (Negative) Urine Bilirubin Negative (Negative) Urine Urobilinogen Normal mg/dL (Negative) Urine Leukocyte Esterase Negative /uL (Negative) Urine RBC 6 /hpf (0 - 3) Urine Microscopic WBC 1 /HPF (0-3) Urine Squamous Epithelial Cells None seen /hpf (<5) Urine Bacteria None seen /hpf (None Seen) Urine Glucose Trace mg/dL (Normal) Influenza Type A Antigen Negative (Negative) Influenza Type B Antigen Negative (Negative) SARS-CoV-2 Antigen (Rapid) Negative (NEGATIVE) Test 01/21/25 04:00 01/20/25 21:50 01/20/25 21:00 01/20/25 19:57 White Blood Count 5.8 10^3/uL (4.4-10.8) Red Blood Count 3.81 10^6/uL (4.5-5.90) Hemoglobin 12.8 g/dL (13.5-17.5) Hematocrit 36.9 % (41.0-53.0) Mean Corpuscular Volume 96.9 fL (80.0-100.0) Mean Corpuscular Hemoglobin 33.5 pg (28.0-32.0) Mean Corpuscular Hemoglobin Concent 34.6 g/dL (32.0-36.0) Red Cell Distribution Width 13.7 % (11.8-14.3) Platelet Count 338 10^3/uL (140-450) Mean Platelet Volume 8.0 fL (6.9-10.8) Neutrophils (%) (Auto) 81.1 % (37.0-80.0) Lymphocytes (%) (Auto) 10.5 % (10.0-50.0) Monocytes (%) (Auto) 7.3 % (0.0-12.0) Eosinophils (%) (Auto) 0.4 % (0.0-7.0) Basophils (%) (Auto) 0.7 % (0.0-2.0) Neutrophils # (Auto) 4.7 10 ^3/uL (1.6-8.6) Lymphocytes # (Auto) 0.6 10 ^3/uL (0.4-5.4) Monocytes # (Auto) 0.4 10 ^3/uL (0-1.3) Eosinophils # (Auto) 0 10 ^3/uL (0-0.8) Basophils # (Auto) 0 10 ^3/uL (0-0.2) Nucleated Red Blood Cells 0.1 % Sodium Level 140 mmol/L (136-145) Potassium Level 4.4 mmol/L (3.5-5.1) Chloride Level 105 mmol/L (98-107) Carbon Dioxide Level 25 mmol/L (20-31) Anion Gap 10 (5-15) Blood Urea Nitrogen 13 mg/dL (9-23) BUN/Creatinine Ratio 14.9 (10.0-20.0) Serum Glucose 113 mg/dL (74-106) Calcium Level 9.7 mg/dL (8.7-10.4) Total Bilirubin 0.7 mg/dL (0.2-1.0) Aspartate Amino Transferase (AST) 16 U/L (13-40) Alanine Aminotransferase (ALT) < 9 U/L (7-40) Alkaline Phosphatase 81 U/L (46-116) Total Protein 8.0 g/dL (5.7-8.2) Albumin 4.5 g/dL (3.2-4.8) Lactic Acid Level 1.0 mmol/L (0.4-2.0) Troponin I High Sensitivity 4 ng/L (</=54) B-Type Natriuretic Peptide 22.62 pg/mL (0-100) Other Laboratory Tests 01/23/25 04:57 01/21/25 04:00 Brief Hx & Hospital Course: see dictated note Condition at Discharge: Fair Final Diagnosis/Problems List abd pain Discharge Disposition: Home Discharge Instruct/Medications Diet: Regular Diet comment: pureed diet Activity: No Restrictions, As Tolerated Follow [facility] Medications: resume home meds Discharge Statement: "Patient was advised to return to the ER or call 911 if any headaches, dizziness, shortness of breath, chest pain, abdominal pain, bleeding, fevers, or worsening of medical condition. Patient was counseled about treatment plan, medications, possible side effects, patientverbalized understanding. All questions were answered to the best of my ability. This discharge took greater then 30 minutes in planning, reviewing documentation, counseling the patient, and discussing with other team members." ASSESSMENT ASSESSMENT Assessment abd pain Date of Service: January 25, 2025 Billing Provider: CARIN WOODS MD Common Visit Codes: 17403-IDS/OBS DISCH DAY >30min CARIN WOODS MD January 25, 2025 11:06
--- NOTE | 2025-01-25 11:17 | DVHDS ---
DATE OF DISCHARGE: 01/25/2025 The patient is a 79-year-old gentleman who was admitted after increasing agitation and difficulty in speech and hallucinations. The patient has history of Parkinson's dementia, previous pacemaker, hypertension, and bedbound status. HOSPITAL COURSE: The patient had a CT of abdomen and pelvis that showed evidence of dilated stool impacting the rectum. The patient was seen in GI consult by Dr. Augusta Arauz. The patient has since had bowel activity and is tolerating oral diet. The patient will now be discharged home to resume his home medications and follow up at the [facility] and with his primary care. FINAL DIAGNOSES: * Encephalopathy likely metabolic. * Fecal impaction. * Dementia. * Parkinson's disease. * Hypertension. * History of pacemaker. * Functional quadriplegia. * History of neurostimulator implantation. Time spent in discharge planning and review of plan with the patient and at bedside and nursing was 38 minutes. MD TONNY Odonnell/TRACY TID: [id number] RECEIPT: [id number]
[2025-01-25 13:43] VITALS: BP 110/69; PULSE 72; RESP 18; TEMP 98.3; O2SAT 97
--- NOTE | 2025-01-25 13:43 | DVHPN2 ---
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 AMS vital signs Vital Sign Date Time Temp Pulse Resp B/P (MAP) Pulse Ox O2 Delivery O2 Flow Rate FiO2 01/25/25 11:52 78 188/92 01/25/25 08:30 98.5 18 96 98.5 01/25/25 08:00 Room Air* 0 21 Total Intake and Output 01/24/25 01/24/25 01/25/25 15:00 23:00 07:00 Intake Total 300 ml 1100 ml Balance 300 ml 1100 ml medications Current Medications Medications Dose Ordered Sig/Jose Route Start Time Stop Time Status Last Admin Dose Admin Acetaminophen 325 mg Q4HP PRN PO 01/21/25 00:00 01/25/25 04:25 325 MG Enoxaparin Sodium 40 mg DAILY SC 01/21/25 10:00 01/25/25 12:11 40 MG Amlodipine Besylate 5 mg DAILY PO 01/21/25 04:00 01/25/25 11:51 5 MG Aspirin 81 mg DAILY PO 01/21/25 10:00 01/25/25 11:37 81 MG Latanoprost 1 drop QPM EACHEYE 01/21/25 18:00 01/23/25 17:42 1 DROP Carbidopa/Levodopa 1 tab DAILY@0800 PO 01/22/25 08:00 Patient Own Medication 34 mg DAILY PO 01/21/25 10:00 01/25/25 12:13 34 MG Quetiapine Fumarate 25 mg BID PO 01/21/25 10:00 01/25/25 11:37 25 MG Carvedilol 3.125 mg BID PO 01/21/25 06:15 01/25/25 11:52 3.125 MG Carbidopa/Levodopa 1.5 tab TID PO 01/21/25 14:00 01/25/25 06:28 1.5 TAB Carbidopa/Levodopa 1 tab BID@0400,1200 PO 01/21/25 12:00 01/25/25 11:38 1 TAB Dextrose/Sodium Chloride 1,000 ml @ 75 mls/hr [id number] IV 01/21/25 17:45 01/25/25 04:15 75 MLS/HR Gabapentin 100 mg QPM PO 01/21/25 18:00 01/21/25 18:10 100 MG Lactulose 30 ml Q6HR PO 01/22/25 18:00 01/25/25 11:40 30 ML Hydralazine HCl 10 mg Q6HP PRN IV 01/23/25 12:15 01/24/25 05:14 10 MG laboratory and microbiology Laboratory Tests 01/23/25 04:57 01/21/25 04:00 Test 01/21/25 04:00 Range/Units Serum Glucose 113 H 74-106 mg/dL Problem List KNOW PARKINSONS NERVE STIMULATOR HTN 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 start @ 20ml/hr, increase 10ml/hr Q4H until goal is reached. water flush 200ml Q6H if allowed. 3) Advance diet as medically feasible Expected Outcomes/Goals: to meet 75% estimated needs within 7 days FU 2-3 days Body Fat Depletion (Non Severe: Mild Depletion Muscle Mass (Severe): Mod to Severe Depletion Plan discussed with: Patient ETHAN MELVIN MD January 25, 2025 13:43
--- NOTE | 2025-01-25 13:44 | DVHPN2 ---
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 PROGRESSION OF ALZHEIMER AMS vital signs Vital Sign Date Time Temp Pulse Resp B/P (MAP) Pulse Ox O2 Delivery O2 Flow Rate FiO2 01/25/25 11:52 78 188/92 01/25/25 08:30 98.5 18 96 98.5 01/25/25 08:00 Room Air* 0 21 Total Intake and Output 01/24/25 01/24/25 01/25/25 15:00 23:00 07:00 Intake Total 300 ml 1100 ml Balance 300 ml 1100 ml medications Current Medications Medications Dose Ordered Sig/Jose Route Start Time Stop Time Status Last Admin Dose Admin Acetaminophen 325 mg Q4HP PRN PO 01/21/25 00:00 01/25/25 04:25 325 MG Enoxaparin Sodium 40 mg DAILY SC 01/21/25 10:00 01/25/25 12:11 40 MG Amlodipine Besylate 5 mg DAILY PO 01/21/25 04:00 01/25/25 11:51 5 MG Aspirin 81 mg DAILY PO 01/21/25 10:00 01/25/25 11:37 81 MG Latanoprost 1 drop QPM EACHEYE 01/21/25 18:00 01/23/25 17:42 1 DROP Carbidopa/Levodopa 1 tab DAILY@0800 PO 01/22/25 08:00 Patient Own Medication 34 mg DAILY PO 01/21/25 10:00 01/25/25 12:13 34 MG Quetiapine Fumarate 25 mg BID PO 01/21/25 10:00 01/25/25 11:37 25 MG Carvedilol 3.125 mg BID PO 01/21/25 06:15 01/25/25 11:52 3.125 MG Carbidopa/Levodopa 1.5 tab TID PO 01/21/25 14:00 01/25/25 06:28 1.5 TAB Carbidopa/Levodopa 1 tab BID@0400,1200 PO 01/21/25 12:00 01/25/25 11:38 1 TAB Dextrose/Sodium Chloride 1,000 ml @ 75 mls/hr [id number] IV 01/21/25 17:45 01/25/25 04:15 75 MLS/HR Gabapentin 100 mg QPM PO 01/21/25 18:00 01/21/25 18:10 100 MG Lactulose 30 ml Q6HR PO 01/22/25 18:00 01/25/25 11:40 30 ML Hydralazine HCl 10 mg Q6HP PRN IV 01/23/25 12:15 01/24/25 05:14 10 MG laboratory and microbiology Laboratory Tests 01/23/25 04:57 01/21/25 04:00 Test 01/21/25 04:00 Range/Units Serum Glucose 113 H 74-106 mg/dL Problem List KNOW PARKINSONS NERVE STIMULATOR HTN 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 start @ 20ml/hr, increase 10ml/hr Q4H until goal is reached. water flush 200ml Q6H if allowed. 3) Advance diet as medically feasible Expected Outcomes/Goals: to meet 75% estimated needs within 7 days FU 2-3 days Body Fat Depletion (Non Severe: Mild Depletion Muscle Mass (Severe): Mod to Severe Depletion Plan discussed with: Patient, Spouse ETHAN MELVIN MD January 25, 2025 13:44
[2025-01-25 13:47] VITALS: BP 188/92; PULSE 78; RESP 18; TEMP 36.8; O2SAT 97
== END 2025-01-25 15:18 | disposition home health service (06) | DRG 70 ==
LOC: ER 19:44 → EDBD 19:44 → OVERFLOW 23:48 → WEST WING 01-22 21:46 → TELE-WESTW 01-22 23:31 → WEST WING 01-23 13:29
PROVIDERS: ADMIT Internal Medicine; ATTEND Internal Medicine
DX: G93.41 Metabolic encephalopathy (principal); R53.2 Functional quadriplegia; E87.20 Acidosis, unspecified; K56.41 Fecal impaction; K58.1 Irritable bowel syndrome with constipation; I25.10 Atherosclerotic heart disease of native coronary artery without angina pectoris; I10 Essential (primary) hypertension; Z20.822 Contact with and (suspected) exposure to COVID-19; R29.810 Facial weakness; R47.81 Slurred speech; F41.9 Anxiety disorder, unspecified; R47.1 Dysarthria and anarthria; G20.A1 Parkinson's disease without dyskinesia, without mention of fluctuations; F02.80 Dementia in other diseases classified elsewhere, unspecified severity, without behavioral disturbance, psychotic disturbance, mood disturbance, and anxiety; Z74.01 Bed confinement status; Z88.8 Allergy status to other drugs, medicaments and biological substances; Z91.041 Radiographic dye allergy status; Z79.899 Other long term (current) drug therapy; Z79.82 Long term (current) use of aspirin; Z95.0 Presence of cardiac pacemaker; Z86.73 Personal history of transient ischemic attack (TIA), and cerebral infarction without residual deficits; Z83.3 Family history of diabetes mellitus; Z80.6 Family history of leukemia; Z82.49 Family history of ischemic heart disease and other diseases of the circulatory system
CPT/HCPCS: 36415; 70450; 71045; 74018; 74176; 80048; 80053; 80202; 81001; 82378; 82565; 83605; 83880; 84443; 84484; 85025; 87040; 87081; 87426; 87804; 92610; 93005; 96361; 96365; G0378; J0692; J2543

== ENCOUNTER 2025-05-10 15:34 | Outpatient (CLI) | payer MEDICARE, OTHER ==
[2025-05-10 15:15] VITALS: BP 72/44; PULSE 66; RESP 20; O2SAT 96
[2025-05-10] MEDS: SODIUM CHLORIDE 0.9% 500 ML IV ONE (15:30)
[~2025-05-10 15:34] MED LIST changes: +CARV3.1240 PO; +MIDO10TA3 PO
[2025-05-10 16:06] VITALS: BP 180/90; PULSE 91; RESP 20; O2SAT 96
== END 2025-05-10 17:00 | disposition home or self-care (01) ==
LOC: CHF HDHVI 15:34
PROVIDERS: ATTEND Internal Medicine Cardiovascular Disease
DX: E86.0 Dehydration (principal); E87.20 Acidosis, unspecified; I95.9 Hypotension, unspecified; I11.0 Hypertensive heart disease with heart failure; I50.33 Acute on chronic diastolic (congestive) heart failure; F41.9 Anxiety disorder, unspecified; I25.10 Atherosclerotic heart disease of native coronary artery without angina pectoris; E78.5 Hyperlipidemia, unspecified; M81.0 Age-related osteoporosis without current pathological fracture; I48.0 Paroxysmal atrial fibrillation; E11.9 Type 2 diabetes mellitus without complications; E03.9 Hypothyroidism, unspecified; Z79.82 Long term (current) use of aspirin; Z79.899 Other long term (current) drug therapy; Z86.73 Personal history of transient ischemic attack (TIA), and cerebral infarction without residual deficits; Z95.0 Presence of cardiac pacemaker; Z88.8 Allergy status to other drugs, medicaments and biological substances
CPT/HCPCS: 96360; G0463; J7040